=== PATIENT | female | born 1990 | race American Indian/Alaskan Native ===

== ENCOUNTER 2017-08-12 | Emergency (ER) | payer SELFPAY ==
--- NOTE | 2017-08-12 12:06 | EDPHYS ---
Physician Documentation [facility] Name: Margaret Lucero Age: 26 yrs Sex: Female : 1990 Arrival Date: 08/12/2017 Time: 10:53 Bed 13 Private MD: ED Physician Chance Quigley HPI: 08/12 12:03 This 26 yrs old Other Female presents to ER via Ambulatory with complaints of Abdominal rn Pain. 12:03 The patient presents with abdominal pain in the epigastric area. Onset: The rn symptoms/episode began/occurred 2 month(s) ago. Associated signs and symptoms: Pertinent negatives: blood in stools, fever, vomiting, vomiting blood. The symptoms are described as achy, burning. Severity of pain: At its worst the pain was mild in the emergency department the pain has improved. The patient has experienced similar episodes in the past. Reports epigastric abd pain for 2 months, got worse today, intermittent, assoc with diarrhea and constipation alternating, has cut out lactose out of diet, a little better, no insurance so hasn't seen GI. Takes ibuprofen frequently for periods and headaches, no black stool or hematemesis. . 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 - Social history:: Smoking status: Patient uses tobacco products, vape. - Family history:: not pertinent. - Hospitalizations: : No recent hospitalization is reported. ROS: 12:03 Constitutional: Negative for fever, chills, and weight loss, Eyes: Negative for injury, rn pain, redness, and discharge, Neck: Negative for injury, pain, and swelling, Cardiovascular: Negative for chest pain, palpitations, and edema, Respiratory: Negative for shortness of breath, cough, wheezing, and pleuritic chest pain, Abdomen/GI: Negative for nausea, vomiting MS/Extremity: Negative for injury and deformity, Skin: Negative for injury, rash, and discoloration, Neuro: Negative for headache, weakness, numbness, tingling, and seizure. Exam: 12:03 Constitutional: This is a well developed, well nourished patient who is awake, alert, rn and in no acute distress. Head/Face: Normocephalic, atraumatic. Eyes: Pupils equal round and reactive to light, extra-ocular motions intact. Lids and lashes normal. Conjunctiva and sclera are non-icteric and not injected. Cornea within normal limits. Periorbital areas with no swelling, redness, or edema. Abdomen/GI: Soft, non-tender, with normal bowel sounds. No distension or tympany. No guarding or rebound. No evidence of tenderness throughout. Back: No spinal tenderness. No costovertebral tenderness. Full range of motion. Skin: Warm, dry with normal turgor. Normal color with no rashes, no lesions, and no evidence of cellulitis. MS/ Extremity: Pulses equal, no cyanosis. Neurovascular intact. Full, normal range of motion. Equal circumference. Neuro: Awake and alert, GCS 15, oriented to person, place, time, and situation. Cranial nerves II-XII grossly intact. Motor strength 5/5 in all extremities. Sensory grossly intact. Cerebellar exam normal. Normal gait. Vital Signs: 11:04 BP 106 / 83; Pulse 68; Resp 18; Temp 97.4; Pulse Ox 97% on R/A; Weight 80.29 kg; Height ph 5 ft. 3 in. (160.02 cm); Pain 8/10; 11:58 BP 108 / 79; Pulse 63; Resp 17; Pulse Ox 99% ; rb1 11:04 Body Mass Index 31.35 (80.29 kg, 160.02 cm) ph MDM: 11:47 Patient medically screened. rn 12:03 Differential diagnosis: Cholelithiasis, gastritis, gastroesophageal reflux disease, rn non-specific abd pain, Peptic Ulcer Disease. Data reviewed: vital signs, nurses notes, and as a result, I will discharge patient. Counseling: I had a detailed discussion with the patient and/or guardian regarding: the historical points, exam findings, and any diagnostic results supporting the discharge/admit diagnosis, the need for outpatient follow up, to return to the emergency department if symptoms worsen or persist or if there are any questions or concerns that arise at home. Special discussion: I discussed with the patient/guardian in detail that at this point there is no indication for admission to the hospital. It is understood, however, that if the symptoms persist or worsen the patient needs to return immediately for re-evaluation. Based on the history and exam findings, there is no indication for further emergent testing or inpatient evaluation. I discussed with the patient/guardian the need to see the solid waste facility supervisor for further evaluation of the symptoms. ED course: Pt with normal vitals, non-tender abd exam, story sounds like either GERD/gastritis/IBS/IBD, recommended OTC antacid medication and GI f/u, return precautions given and understood. . Administered Medications: No medications were administered Disposition: 08/12/17 12:06 Discharged to Home as Medical Screen. Impression: Gastritis, unspecified, without bleeding. - Condition is Stable. - Discharge Instructions: Gastritis, Adult. - Medication Reconciliation Form, Thank You Letter, Antibiotic Education, Prescription Opioid Use form. - Follow up: Konrad Long MD; When: As needed; Reason: Recheck today's complaints, Re-evaluation by your physician. - Problem is chronic. - Symptoms have improved. Signatures: Maranda Mac RN RN Chance Quigley MD MD rn Hall, Patricia, RN RN Karey Lanier RN RN rb1 Corrections: (The following items were deleted from the chart) 12:09 11:05 PMHx: None; rb1
--- NOTE | 2017-08-12 12:06 | ER ---
Nurse's Notes [facility] Name: Margaret Lucero Age: 26 yrs Sex: Female : 1990 Arrival Date: 08/12/2017 Time: 10:53 Bed 13 Private MD: Diagnosis: Gastritis, unspecified, without bleeding Presentation: 08/12 10:59 Presenting complaint: Patient states: " I have been having burning pain in my stomach ph and diarrhea. This has been going on for a few months but it's worse this time. It's like I'll have diarrhea and then suddenly I'm constipated, then I'll have diarrhea again." Pt reports burning pain in across middle of stomach, diarrhea, nausea and constipation, denies vomiting or fever. Transition of care: patient was not received from another setting of care. Onset of symptoms was August 12, 2017. Initial Sepsis Screen: Does the patient meet any 2 criteria? No. Patient's initial sepsis screen is negative. Does the patient have a suspected source of infection? No. Patient's initial sepsis screen is negative. Care prior to arrival: None. 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 - Social history:: Smoking status: Patient uses tobacco products, vape. - Family history:: not pertinent. - Hospitalizations: : No recent hospitalization is reported. Screenin:45 Abuse screen: Denies threats or abuse. Nutritional screening: No deficits noted. rb1 Tuberculosis screening: No symptoms or risk factors identified. Fall Risk None identified. Assessment: 11:47 General: Appears in no apparent distress. comfortable, Behavior is calm, cooperative. rb1 Pain: Complains of pain in epigastric area Pain currently is 8 out of 10 on a pain scale. Neuro: Level of Consciousness is awake, alert, obeys commands, Oriented to person, place, time, situation. Cardiovascular: Capillary refill < 3 seconds is brisk in bilateral fingers. Respiratory: Airway is patent Respiratory effort is even, unlabored, Respiratory pattern is regular, symmetrical. GI: Bowel sounds present X 4 quads. Abd is soft Abdomen is tender to palpation in epigastric area Reports diarrhea, nausea, since this morning. : No signs and/or symptoms were reported regarding the genitourinary system. Derm: Skin is pink, warm \\T\\ dry. Vital Signs: 11:04 BP 106 / 83; Pulse 68; Resp 18; Temp 97.4; Pulse Ox 97% on R/A; Weight 80.29 kg; Height ph 5 ft. 3 in. (160.02 cm); Pain 8/10; 11:58 BP 108 / 79; Pulse 63; Resp 17; Pulse Ox 99% ; rb1 11:04 Body Mass Index 31.35 (80.29 kg, 160.02 cm) ph ED Course: 10:53 Patient arrived in ED. as 11:02 Triage completed. ph 11:05 Arm band placed on. ph 11:45 Patient has correct armband on for positive identification. Bed in low position. Call rb1 light in reach. Side rails up X 1. Pulse ox on. NIBP on. 11:47 Chance Quigley MD is Attending Physician. rn 12:00 Karey Lanier, MICHAELA is Primary Nurse. rb1 12:06 Konrad Long MD is Referral Physician. rn 12:13 No provider procedures requiring assistance completed. Patient did not have IV access rb1 during this emergency room visit. Administered Medications: No medications were administered Outcome: 12:06 Discharge ordered by . rn 12:13 Patient left the ED. iw 12:13 Discharged to home ambulatory. rb1 12:13 Condition: stable 12:13 Discharge instructions given to pt. left without signing paperwork Signatures: Elisabeth Tomlin Irene, RN RN Chance Quigley MD MD rn Hall, Patricia, RN RN Karey Lanier, MICHAELA RN rb1 Corrections: (The following items were deleted from the chart) 12:09 11:05 PMHx: None; ph rb1
== END 2017-08-12 12:13 | disposition home or self-care (01) ==
CPT/HCPCS: 99283

== ENCOUNTER 2018-08-17 18:44 | Emergency (ER) | payer OTHER ==
[2018-08-17] MEDS ORDERED: NA CHLORIDE 0.9% 1,000 ML ONE ×2 (19:41→21:23)
[2018-08-17 19:48] LABS: Absolute Lymphocytes (CBC) 2.3 K/uL (0.7-4.9); Absolute Neutrophil 9.4 K/uL (1.8-8.0); Basophils % 0.6 % (0-1.3); Eosinophils % 0.7 % (0-4.4); Hematocrit 32.2 % (36.0-45.0); Lymphocytes % 18.1 % (15.3-44.8); MPV 9.1 fL (7.6-11.3); Monocytes % 7.5 % (3.3-12.3)
[2018-08-17 20:06] LABS: ALT/SGPT 15 U/L (12-78); AST/SGOT 11 U/L (15-37); Albumin 2.8 g/dL (3.4-5.0); Alkaline Phosphatase 81 U/L (45-117); BUN Blood Urea Nitrogen 8 mg/dL (7-18); Bicarbonate 23 mmol/L (21-32); Bilirubin Direct < 0.1 mg/dL (0-0.2); Bilirubin Total 0.3 mg/dL (0.2-1.0); Glucose Level 74 mg/dL (74-106); Potassium 3.9 mmol/L (3.5-5.1); Protein, Total 7.4 g/dL (6.4-8.2); Sodium Level 139 mmol/L (136-145)
[2018-08-17 20:39] LABS: Urine Blood NEGATIVE (NEG); Urine Glucose NEGATIVE (NEG); Urine Protein TRACE (NEG); Urine Specific Gravity 1.025 (1.005-1.030)
--- NOTE | 2018-08-17 22:02 | EDPHYS ---
Physician Documentation [facility] Name: Margaret Lucero Age: 27 yrs Sex: Female : 1990 Arrival Date: 08/17/2018 Time: 18:48 Bed 27 Private MD: ED Physician Carlos A Day HPI: 08/17 20:08 This 27 yrs old Other Female presents to ER via Ambulatory with complaints of snw Dizziness, 22 wks . 20:08 The patient presents with generalized weakness, lightheadedness. Onset: The snw symptoms/episode began/occurred gradually. Context: occurred at home, occurred while the patient was walking. Modifying factors: the symptoms are aggravated by recent influenza, well for a short time and then got bronchitic illness. 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 No vaginal bleeding. Associated signs and symptoms: Pertinent positives: headache, tingling. Severity of symptoms: At their worst the symptoms were moderate. Patient's baseline: Neuro: alert and fully oriented, Motor: no deficits, Ambulation: walks without assistance, Speech: normal. It is unknown whether or not the patient has had similar symptoms in the past. seeing [facility] MD/OB. 22 wk primip. 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 - Social history:: Smoking status: Patient/guardian denies using tobacco, Patient/guardian denies using alcohol, street drugs, IV drugs. - Ebola Screening: : No symptoms or risks identified at this time. ROS: 20:07 Constitutional: Negative for fever, chills, and weight loss, Eyes: Negative for injury, snw pain, redness, and discharge, ENT: Negative for injury, pain, and discharge, Neck: Negative for injury, pain, and swelling, Cardiovascular: Negative for chest pain, palpitations, and edema, Respiratory: Negative for shortness of breath, cough, wheezing, and pleuritic chest pain, Abdomen/GI: Negative for abdominal pain, nausea, vomiting, diarrhea, and constipation, Back: Negative for injury and pain, : Negative for injury, bleeding, discharge, and swelling, MS/Extremity: Negative for injury and deformity, Skin: Negative for injury, rash, and discoloration. 20:07 Psych: Negative for depression, anxiety, suicide ideation, homicidal ideation, and hallucinations, Allergy/Immunology: Negative for hives, rash, and allergies. 20:07 Neuro: Positive for dizziness, headache. Exam: 20:07 Constitutional: This is a well developed, well nourished patient who is awake, alert, snw and in no acute distress. Head/Face: Normocephalic, atraumatic. Eyes: Pupils equal round and reactive to light, extra-ocular motions intact. Lids and lashes normal. Conjunctiva and sclera are non-icteric and not injected. Cornea within normal limits. Periorbital areas with no swelling, redness, or edema. ENT: Nares patent. No nasal discharge, no septal abnormalities noted. Tympanic membranes are normal and external auditory canals are clear. Oropharynx with no redness, swelling, or masses, exudates, or evidence of obstruction, uvula midline. Mucous membranes moist. Neck: Trachea midline, no thyromegaly or masses palpated, and no cervical lymphadenopathy. Supple, full range of motion without nuchal rigidity, or vertebral point tenderness. No Meningismus. Chest/axilla: Normal chest wall appearance and motion. Nontender with no deformity. No lesions are appreciated. Cardiovascular: Regular rate and rhythm with a normal S1 and S2. No gallops, murmurs, or rubs. Normal PMI, no JVD. No pulse deficits. Respiratory: Lungs have equal breath sounds bilaterally, clear to auscultation and percussion. No rales, rhonchi or wheezes noted. No increased work of breathing, no retractions or nasal flaring. Abdomen/GI: Soft, non-tender, with normal bowel sounds. No distension or tympany. No guarding or rebound. No evidence of tenderness throughout. +Gravid Back: No spinal tenderness. No costovertebral tenderness. Full range of motion. Skin: Warm, dry with normal turgor. Normal color with no rashes, no lesions, and no evidence of cellulitis. MS/ Extremity: Pulses equal, no cyanosis. Neurovascular intact. Full, normal range of motion. Neuro: Awake and alert, GCS 15, oriented to person, place, time, and situation. Cranial nerves II-XII grossly intact. Motor strength 5/5 in all extremities. Sensory grossly intact. Cerebellar exam normal. Normal gait. Psych: Awake, alert, with orientation to person, place and time. Behavior, mood, and affect are within normal limits. Vital Signs: 19:26 BP 101 / 74; Pulse 74; Resp 18; Temp 97.6(O); Pulse Ox 100% on R/A; Weight 83.46 kg; mg2 Height 5 ft. 4 in. (162.56 cm); Pain 6/10; 21:23 BP 110 / 64; Pulse 85; Resp 18; Pulse Ox 100% on R/A; Pain 0/10; mg2 19:26 Body Mass Index 31.58 (83.46 kg, 162.56 cm) mg2 MDM: 19:30 Patient medically screened. snw 22:02 Data reviewed: vital signs, nurses notes. Data interpreted: Pulse oximetry: on room air snw is 100 %. Interpretation: normal. Counseling: I had a detailed discussion with the patient and/or guardian regarding: the historical points, exam findings, and any diagnostic results supporting the discharge/admit diagnosis, lab results, the need for outpatient follow up, to return to the emergency department if symptoms worsen or persist or if there are any questions or concerns that arise at home. Special discussion: Based on the history and exam findings, there is no indication for further emergent testing or inpatient evaluation. I discussed with the patient/guardian the need to see the OB Gyne specialist for further evaluation of the symptoms. I discussed with the patient/guardian the need to see the primary care provider for further evaluation of the symptoms. 22:03 Response to treatment: the patient's symptoms have markedly improved after treatment, snw patient is well hydrated. 08/17 19: Order name: Basic Metabolic Panel; Complete Time: 20:06 snw 08/17 18: Order name: CBC with Diff; Complete Time: 19:55 snw 08/17 18: Order name: Hepatic Function; Complete Time: 20:06 snw 08/17 19:30 Order name: Urine Dipstick--Ancillary (enter results) ar5 08/17 19: Order name: Urine --Ancillary (enter results) ar5 08/17 19:31 Order name: Urine Dipstick-Ancillary; Complete Time: 20:46 EDMS 08/17 19:25 Order name: IV Saline Lock; Complete Time: 19:32 snw 08/17 19:25 Order name: Labs collected and sent; Complete Time: 19:32 snw 08/17 19:31 Order name: Urine --Ancillary; Complete Time: 20:46 EDMS 08/17 20:07 Order name: FHT's; Complete Time: 21:22 snw Administered Medications: 19:45 Drug: NS 0.9% 1000 ml Route: IV; Rate: 1 bolus; Site: right antecubital; mg2 20:59 Follow up: Response: No adverse reaction; IV Status: Completed infusion mg2 21:22 Drug: NS 0.9% 1000 ml Route: IV; Rate: 1 bolus; Site: right antecubital; mg2 22:04 Follow up: Response: No adverse reaction; IV Status: Completed infusion mg2 Disposition: 08/18 21:15 Co-signature as Attending Physician, Carlos A Day MD I agree with the assessment and wa plan of care. Disposition: 08/17/18 22:01 Discharged to Home. Impression: Dehydration. - Condition is Stable. - Discharge Instructions: Dehydration, Adult, Rehydration, Adult, Eating Plan for Women. - Prescriptions for Vitamin 27- 0.8 mg Oral Tablet - take 1 tablet by ORAL route once daily; 60 tablet. - Work release form, Medication Reconciliation Form, Thank You Letter, Antibiotic Education, Prescription Opioid Use form. - Follow up: Private Physician; When: 2 - 3 days; Reason: Recheck today's complaints, Continuance of care, Re-evaluation by your physician. Follow up: Emergency Department; When: As needed; Reason: Worsening of condition. Signatures: Dispatcher [employer] [facility] Lesley Byers, AIR OPERATIONS MANAGER-C AIR OPERATIONS MANAGER-Csnw Carlos A Day MD MD wa Gardose, Michele, RN RN mg2 Corrections: (The following items were deleted from the chart) 08/17 22:20 22:01 08/17/2018 22:01 Discharged to Home. Impression: Dehydration. Condition is mg2 Stable. Discharge Instructions: Dehydration, Adult, Rehydration, Adult, Eating Plan for Women. Prescriptions for Vitamin 27-0.8 mg Oral Tablet - take 1 tablet by ORAL route once daily; 60 tablet. and Forms are Work release form, Medication Reconciliation Form, Thank You Letter, Antibiotic Education, Prescription Opioid Use. Follow up: Private Physician; When: 2 - 3 days; Reason: Recheck today's complaints, Continuance of care, Re-evaluation by your physician. Follow up: Emergency Department; When: As needed; Reason: Worsening of condition. snsandrita
--- NOTE | 2018-08-17 22:02 | ER ---
Nurse's Notes [facility] Name: Margaret Lucero Age: 27 yrs Sex: Female : 1990 Arrival Date: 08/17/2018 Time: 18:48 Bed 27 Private MD: Diagnosis: Dehydration Presentation: 08/17 19:18 Presenting complaint: Patient states: im 22 weeks , have dizziness, tingling mg2 sensation on my both hands, headache, nausea and abdominal cramping on and off for 1 1/2 weeks now. i had flu 2 weeks ago. Transition of care: patient was not received from another setting of care. Onset of symptoms was July 2018. Risk Assessment: Do you want to hurt yourself or someone else? Patient reports no desire to harm self or others. Initial Sepsis Screen: Does the patient meet any 2 criteria? No. Patient's initial sepsis screen is negative. Does the patient have a suspected source of infection? No. Patient's initial sepsis screen is negative. Care prior to arrival: None. 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 - Social history:: Smoking status: Patient/guardian denies using tobacco, Patient/guardian denies using alcohol, street drugs, IV drugs. - Ebola Screening: : No symptoms or risks identified at this time. Screenin:22 Abuse screen: Denies threats or abuse. Denies injuries from another. Nutritional mg2 screening: No deficits noted. Tuberculosis screening: No symptoms or risk factors identified. 19:27 Fall Risk None identified. mg2 Assessment: 19:24 General: Appears in no apparent distress. comfortable, Behavior is calm, cooperative. mg2 Pain: Complains of pain in abdomen Pain does not radiate. Pain currently is 6 out of 10 on a pain scale. Quality of pain is described as crampy, Pain began gradually, Is intermittent. Neuro: Level of Consciousness is awake, alert, obeys commands, Oriented to person, place, time, situation. Cardiovascular: Capillary refill < 3 seconds. Respiratory: Airway is patent Respiratory effort is even, unlabored, Respiratory pattern is regular, symmetrical. GI: Abdomen is round non-distended, Reports nausea. : Urine is clear, Reports pain in bilateral in suprapubic area. EENT: No signs and/or symptoms were reported regarding the EENT system. Derm: Skin is intact, is healthy with good turgor, Skin is pink, warm \T\ dry. normal. Musculoskeletal: Circulation, motion, and sensation intact. Capillary refill < 3 seconds. 22:19 Reassessment: Patient appears in no apparent distress at this time. Patient denies pain mg2 at this time. Patient states feeling better. Patient states symptoms have improved. Vital Signs: 19:26 BP 101 / 74; Pulse 74; Resp 18; Temp 97.6(O); Pulse Ox 100% on R/A; Weight 83.46 kg; mg2 Height 5 ft. 4 in. (162.56 cm); Pain 6/10; 21:23 BP 110 / 64; Pulse 85; Resp 18; Pulse Ox 100% on R/A; Pain 0/10; mg2 19:26 Body Mass Index 31.58 (83.46 kg, 162.56 cm) mg2 Vitals: 21:23 Heart Tones 180 FHT. mg2 ED Course: 18:48 Patient arrived in ED. mr 19:05 Chad Baptiste, RN is Primary Nurse. mg2 19:06 Lesley Byers FNP-C is [facility]. snw 19:06 Carlos A Day MD is Attending Physician. snw 19:20 Triage completed. mg2 19:22 Arm band placed on. mg2 19:26 Patient has correct armband on for positive identification. Placed in gown. Bed in low mg2 position. Call light in reach. Side rails up X2. Pulse ox on. NIBP on. 19:26 No provider procedures requiring assistance completed. mg2 19:26 Urine collected: clean catch specimen, clear, gloria colored, ran by Chad Baptiste RN. jp3 19:30 Initial lab(s) drawn, by pr, sent to lab. Inserted saline lock: 20 gauge in right jp3 antecubital area, using aseptic technique. Blood collected. 19:40 Warm blanket given. Pillow given. jp3 19:44 Basic Metabolic Panel Sent. jp3 19:44 CBC with Diff Sent. jp3 19:44 Hepatic Function Sent. jp3 22:18 IV discontinued, intact, bleeding controlled, No redness/swelling at site. Pressure mg2 dressing applied. Administered Medications: 19:45 Drug: NS 0.9% 1000 ml Route: IV; Rate: 1 bolus; Site: right antecubital; mg2 20:59 Follow up: Response: No adverse reaction; IV Status: Completed infusion mg2 21:22 Drug: NS 0.9% 1000 ml Route: IV; Rate: 1 bolus; Site: right antecubital; mg2 22:04 Follow up: Response: No adverse reaction; IV Status: Completed infusion mg2 Outcome: 22:01 Discharge ordered by . snw 22:19 Discharged to home ambulatory, with family. mg2 22:19 Condition: stable 22:19 Discharge instructions given to patient, family, Instructed on discharge instructions, follow up and referral plans. medication usage, Demonstrated understanding of instructions, follow-up care, medications, Prescriptions given X 1. 22:20 Patient left the ED. mg2 Signatures: Lesley Byers, DRIER OPERATOR HELPER-C DRIER OPERATOR HELPER-Csnw Randee Nieto Michele, RN RN mg2 Jc Jones jp3 Corrections: (The following items were deleted from the chart) 19:20 19:18 Presenting complaint: Patient states: i have dizziness, tingling sensation on my mg2 both hands, headache and abdominal cramping on and off for 1 1/2 weeks now. i had flu 2 weeks ago. mg2
== END 2018-08-17 22:20 | disposition home or self-care (01) ==
LOC: ER 18:44
DX: O26.892 Other specified pregnancy related conditions, second trimester (principal); E86.0 Dehydration; Z3A.22 22 weeks gestation of pregnancy; F41.9 Anxiety disorder, unspecified; F31.9 Bipolar disorder, unspecified; F32.9 Major depressive disorder, single episode, unspecified
CPT/HCPCS: 36415; 80048; 80076; 81003; 81025; 85025; 96360; 96361; 99284; J7030

== ENCOUNTER 2018-09-12 09:41 | Emergency (ER) | payer OTHER ==
--- NOTE | 2018-09-12 11:27 | EDPHYS ---
Physician Documentation [facility] Name: Margaret Lucero Age: 27 yrs Sex: Female : 1990 Arrival Date: 09/12/2018 Time: 09:43 Bed 5 Private MD: ED Physician Orlando Collins HPI: 09/12 10:26 This 27 yrs old Other Female presents to ER via Ambulatory with complaints of Anxiety. jmm 10:26 Onset: The symptoms/episode began/occurred acutely, this morning. Associated signs and jmm symptoms: Pertinent negatives:. 11:47 Past psychiatric history: Prior diagnosis: bipolar disorder, depression, Psychiatric jmm medications include: Zoloft. This is s 27 year old female with a history of anxiety, bipolar disorder, depression that presents to the ED with complaints of a panic attack which occurred after a dream involving her mom. Patient states that she was prescribed sertraline by her OB 3 weeks ago but stopped taking the medication 2 days in because she didn't like the way it made her feel. Patient states she is having difficulty controlling her panic attacks. Patient denies HI or SI. Patient states she is happy about her . The patient states she has psychiatric services at her OB but has yet to use them. Patient states during her panic attack she developed chest tightness and tingling to all her extremities but that is now resolved. . 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 - Social history:: Smoking status: Patient/guardian denies using tobacco. - Ebola Screening: : Patient negative for fever greater than or equal to 101.5 degrees Fahrenheit, and additional compatible Ebola Virus Disease symptoms Patient denies exposure to infectious person Patient denies travel to an Ebola-affected area in the 21 days before illness onset No symptoms or risks identified at this time. ROS: 11:47 Constitutional: Negative for fever, chills, and weight loss, Cardiovascular: Negative jmm for chest pain, palpitations, and edema, Respiratory: Negative for shortness of breath, cough, wheezing, and pleuritic chest pain, Abdomen/GI: Negative for abdominal pain, nausea, vomiting, diarrhea, and constipation. 11:47 : Negative for vaginal bleeding. 11:47 All other systems are negative. Exam: 11:47 Constitutional: This is a well developed, well nourished patient who is awake, alert, jmm and in no acute distress. Head/Face: atraumatic. Eyes: EOMI, no conjunctival erythema appreciated ENT: Moist Mucus Membranes Neck: Trachea midline, Supple Chest/axilla: Normal chest wall appearance and motion. Cardiovascular: Regular rate and rhythm. No edema appreciated Respiratory: Normal respirations, no respiratory distress appreciated 11:47 Back: Normal ROM Skin: General appearance color normal MS/ Extremity: Moves all extremities, no obvious deformities appreciated, no edema noted to the lower extremities Neuro: Awake and alert, normal gait Psych: Behavior is normal, Mood is normal, Patient is cooperative and pleasant 11:47 Abdomen/GI: Inspection: gravid appearance, Bowel sounds: normal, Palpation: abdomen is soft and non-tender, in all quadrants. Vital Signs: 09:50 Pulse 92; Resp 18; Pulse Ox 100% ; sg 09:51 BP 124 / 93; Resp 17; sg 11:13 BP 100 / 69; Pulse 94; Resp 19; Pulse Ox 99% ; sv 11:40 BP 99 / 73; Pulse 95; Resp 18; Temp 97.5; Pulse Ox 100% on R/A; ph MDM: 10:26 Patient medically screened. [facility] 11:26 Data reviewed: vital signs, nurses notes. Counseling: I had a detailed discussion with [facility] the patient and/or guardian regarding: the historical points, exam findings, and any diagnostic results supporting the discharge/admit diagnosis, the need for outpatient follow up, to return to the emergency department if symptoms worsen or persist or if there are any questions or concerns that arise at home. 11:26 ED course: Patient states feeling much better during the stay in the ED. Patient is [facility] encouraged to follow up with psychiatry for further evaluation. The patient denies SI or HI. Patient is advised to return to the ED if symptoms worsens or if she has any other concerning symptoms. Patient understood and agrees with the plan of care. . 09/12 11:13 Order name: EKG; Complete Time: 11:13 sv 09/12 10:27 Order name: Heart Tones; Complete Time: 10:40 jmm 09/12 10:27 Order name: EKG - Nurse/Tech; Complete Time: 10:34 [facility] Administered Medications: No medications were administered Disposition: 16:31 Co-signature as Attending Physician, Orlando Collins MD. Disposition: 09/12/18 11:26 Discharged to Home. Impression: Anxiety disorder, unspecified. - Condition is Stable. - Discharge Instructions: Panic Attacks. - Prescriptions for Benadryl 25 mg Oral Capsule - take 1 capsule by ORAL route every 6 hours As needed; 30 tablet. - Medication Reconciliation Form, Thank You Letter, Antibiotic Education, Prescription Opioid Use, Work release form form. - Follow up: Private Physician; When: 1 - 2 days; Reason: Recheck today's complaints, Continuance of care, Re-evaluation by your physician. Signatures: Ozzy García RN RN sg Mickail, Joel, PA PA jmm Hall, Patricia, RN RN Orlando Collins MD MD Corrections: (The following items were deleted from the chart) 11:42 11:26 09/12/2018 11:26 Discharged to Home. Impression: Anxiety disorder, unspecified. ph Condition is Stable. Forms are Medication Reconciliation Form, Thank You Letter, Antibiotic Education, Prescription Opioid Use. Follow up: Private Physician; When: 1 - 2 days; Reason: Recheck today's complaints, Continuance of care, Re-evaluation by your physician. mindy
--- NOTE | 2018-09-12 11:27 | ER ---
Nurse's Notes [facility] Name: Margaret Lucero Age: 27 yrs Sex: Female : 1990 Arrival Date: 09/12/2018 Time: 09:43 Bed 5 Private MD: Diagnosis: Anxiety disorder, unspecified Presentation: 09/12 09:50 Presenting complaint: Patient states: Anxiety attach that was triggered by a dream, sg felt anxious with chest tightness and shortness of breath, My provider is aware and given me antidepressants and Im and then had a loss of sensation in my arms and legs, havent had an attack like this is years. 09:52 Transition of care: patient was not received from another setting of care. Onset of sg symptoms was September 12, 2018. Risk Assessment: Do you want to hurt yourself or someone else? Patient reports no desire to harm self or others. Initial Sepsis Screen: Does the patient meet any 2 criteria? No. Patient's initial sepsis screen is negative. Does the patient have a suspected source of infection? No. Patient's initial sepsis screen is negative. Care prior to arrival: None. 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 - Social history:: Smoking status: Patient/guardian denies using tobacco. - Ebola Screening: : Patient negative for fever greater than or equal to 101.5 degrees Fahrenheit, and additional compatible Ebola Virus Disease symptoms Patient denies exposure to infectious person Patient denies travel to an Ebola-affected area in the 21 days before illness onset No symptoms or risks identified at this time. Screenin:40 Abuse screen: Denies threats or abuse. Denies injuries from another. Nutritional ph screening: No deficits noted. Tuberculosis screening: No symptoms or risk factors identified. Fall Risk None identified. Assessment: 10:30 General: Appears in no apparent distress. comfortable, well groomed, Behavior is calm, ph cooperative, appropriate for age. Pain: Complains of pain in chest. Neuro: Level of Consciousness is awake, alert, obeys commands, Oriented to person, place, time, situation. Cardiovascular: Capillary refill < 3 seconds in bilateral fingers Patient's skin is warm and dry. Respiratory: Airway is patent Respiratory effort is even, unlabored, Respiratory pattern is regular, symmetrical. GI: Patient currently denies abdominal pain, nausea, vomiting. Derm: Skin is intact, is healthy with good turgor, Skin is pink, warm \T\ dry. Musculoskeletal: Circulation, motion, and sensation intact. Range of motion: intact in all extremities. 11:39 Reassessment: Patient appears in no apparent distress at this time. Patient and/or ph family updated on plan of care and expected duration. Pain level reassessed. Patient is alert, oriented x 3, equal unlabored respirations, skin warm/dry/pink. Pt d/c home w/ SO w/prescription for Benadryl. Vital Signs: 09:50 Pulse 92; Resp 18; Pulse Ox 100% ; sg 09:51 BP 124 / 93; Resp 17; sg 11:13 BP 100 / 69; Pulse 94; Resp 19; Pulse Ox 99% ; sv 11:40 BP 99 / 73; Pulse 95; Resp 18; Temp 97.5; Pulse Ox 100% on R/A; ph Vitals: 10:40 Heart Tones: 148. 3 ED Course: 09:43 Patient arrived in ED. tw3 09:47 Arm band placed on. sg 09:53 Triage completed. 10:01 Fernando Greenwood PA is PHCP. [facility] 10:01 Orlando Collins MD is Attending Physician. [facility] 10:13 EKG done, by ED staff, reviewed by Fernando ALDRIDGE. 3 11:00 Patient has correct armband on for positive identification. Bed in low position. Call ph light in reach. lard bleacher on. Pulse ox on. NIBP on. Warm blanket given. 11:12 Anabel Browning, RN is Primary Nurse. ph 11:41 No provider procedures requiring assistance completed. Patient did not have IV access ph during this emergency room visit. Administered Medications: No medications were administered Outcome: 11:26 Discharge ordered by . [facility] 11:41 Discharged to home ambulatory, with significant other. ph 11:41 Condition: good 11:41 Discharge instructions given to patient, Instructed on discharge instructions, follow up and referral plans. medication usage, Demonstrated understanding of instructions, follow-up care, medications, Prescriptions given X 1. 11:42 Patient left the ED. ph Signatures: Mayi Mijares, RN Ozzy Enamorado RN RN sg Mickail, Joel, PA PA jmm Hall, Patricia, RN RN Jj, Alejandra 3 Leora Lopez 3
--- NOTE | 2018-09-13 06:20 | EKG ---
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
== END 2018-09-12 11:42 | disposition home or self-care (01) ==
LOC: ER 09:41
DX: O99.342 Other mental disorders complicating pregnancy, second trimester (principal); Z3A.00 Weeks of gestation of pregnancy not specified
CPT/HCPCS: 93005; 99284

== ENCOUNTER 2020-07-20 04:53 | Emergency (ER) | payer OTHER ==
--- OUTSIDE RECORDS SUMMARY | 2020-07-20 04:55 | XMS REPORT | Continuity of Care Document ---
:1990 Author Organization [facility] t Address [address] [place] [address] Care Team Providers Name Role Phone Tonny Coyle DO Attending Clinician Apurva Oglesby MD Attending Clinician Problems This patient has no known problems. Allergies, Adverse Reactions, Alerts This patient has no known allergies or adverse reactions. Medications This patient has no known medications. Procedures This patient has no known procedures. Encounters Start End Encounter Admission Attending Care Care Encounter Source Date/Time Date/Time Type Type Clinicians Facility Department ID 2020-07-18 2020-07-18 Patient Leonides [facility] [id number] 00:00:00 00:00:00 Outreach Dionte ALCANTAR [id number] Tonny [facility] [id number] SILVANA [id number] 2020-02-22 2020-02-22 Office Mendel IAALONSO [id number] 10:00:40 11:25:17 Visit Kiesha Wall [id number] Abdelrahman [id number] Shamar [id number] [address] Results This patient has no known results.
[2020-07-20] MEDS ORDERED: ASPIRIN 81 MG CHEWABLE TABLET ONE (06:08)
[2020-07-20] MEDS ORDERED: ALPRAZOLAM 1 MG TABLET ONE (06:09)
[2020-07-20] MEDS ORDERED: NA CHLORIDE 0.9% 1,000 ML ONE (06:09)
[2020-07-20 06:11] LABS: Absolute Lymphocytes (CBC) 3.4 K/uL (0.7-4.9); Basophils % 0.4 % (0-1.3); Hematocrit 37.5 % (36.0-45.0); MPV 9.8 fL (7.6-11.3); RBC Red Blood Cell Count 4.25 M/uL (3.86-4.86)
[2020-07-20 06:13] LABS: Protime INR 0.99
[2020-07-20 06:36] LABS: ALT/SGPT 55 U/L (12-78); AST/SGOT 44 U/L (15-37); Albumin 3.3 g/dL (3.4-5.0); Alkaline Phosphatase 85 U/L (45-117); BUN Blood Urea Nitrogen 12 mg/dL (7-18); Bicarbonate 23 mmol/L (21-32); Bilirubin Direct < 0.1 mg/dL (0-0.2); Bilirubin Total 0.2 mg/dL (0.2-1.0); Glucose Level 90 mg/dL (74-106); NT PRO-BNP 7 pg/mL (<125); Potassium 3.9 mmol/L (3.5-5.1); Protein, Total 7.9 g/dL (6.4-8.2); Sodium Level 139 mmol/L (136-145); Troponin (Emerg Dept Use Only) < 0.02 ng/mL (0.0-0.045)
--- NOTE | 2020-07-20 08:07 | RAD REPORT ---
EXAM DESCRIPTION: Mikaela Single View07/20/2020 5:40 am CLINICAL HISTORY: Chest pain COMPARISON: none FINDINGS: Prominent right medial suprahilar opacity. Remainder the lungs appear clear. Heart is normal size IMPRESSION: Prominent right medial suprahilar opacity may represent confluence of normal vascular st ructures, lymphadenopathy or less likely lung mass. It is recommended that the patient have a PA and lateral chest series for further evaluation
[2020-07-20 09:18] LABS: Urine Blood NEGATIVE (NEG); Urine Glucose NEGATIVE (NEG); Urine Protein NEGATIVE (NEG); Urine Specific Gravity 1.015 (1.005-1.030); Urine pH 5.5 (5.0-7.0)
--- NOTE | 2020-07-20 10:04 | RAD REPORT ---
EXAM DESCRIPTION: CT - Chest For Pe Angio - 07/20/2020 9:33 am CLINICAL HISTORY: Chest pain COMPARISON: July 18, 2020 chest x-ray TECHNIQUE: Dynamically enhanced axial 3 mm thick images of the chest were obtained during administra tion of <100> mL Isovue 370 IV contrast. Coronal and oblique reconstruction images were generated and reviewed. Exam utilizes a protocol for optimal evaluation of pulmonary arterial tree. Maximum intensity projections 3D imaging was utilized All CT scans are performed using dose optimization technique as appropriate and may include automated exposure control or mA/KV adjustment according to patient size. FINDINGS: A pulmonary embolus is not seen. A thoracic aortic aneurysm is not noted. A pleural effusion is not seen. A pericardial effusion is not seen. Previously described prominent medial right suprahilar opacity represents confluence of normal vessel s. Lungs are clear IMPRESSION: Negative for a pulmonary embolism.
--- NOTE | 2020-07-20 10:24 | ER ---
Nurse's Notes [facility] Name: Margaret Lucero Age: 29 yrs Sex: Female : 1990 Arrival Date: 07/20/2020 Time: 05:05 Bed 18 Private MD: Diagnosis: Chest pain, unspecified;Jaw pain;Anxiety disorder, unspecified Presentation: 07/20 05:24 Chief complaint: Patient states: Reports she started having pain in her left jaw, ea tingling in left arm and chest pain around 0000 while watching TV. Pt states " I am not sure if it's my anxiety or something else". Coronavirus screen: At this time, the client does not indicate any symptoms associated with coronavirus-19. Ebola Screen: No symptoms or risks identified at this time. Initial Sepsis Screen: Does the patient meet any 2 criteria? No. Patient's initial sepsis screen is negative. Does the patient have a suspected source of infection? No. Patient's initial sepsis screen is negative. Risk Assessment: Do you want to hurt yourself or someone else? Patient reports no desire to harm self or others. Onset of symptoms was July 20, 2020. 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 - Social history:: Smoking status: Patient denies any tobacco usage or history of. - Family history:: not pertinent. Screenin:26 Abuse screen: Denies threats or abuse. Nutritional screening: No deficits noted. ea Tuberculosis screening: No symptoms or risk factors identified. Fall Risk None identified. Assessment: 05:29 General: Appears in no apparent distress. Behavior is anxious. Pain: Complains of pain ea in left mandible and chest. Neuro: Level of Consciousness is awake, alert, obeys commands, Oriented to person, place, time, situation. Cardiovascular: Patient's skin is warm and dry. Respiratory: Airway is patent Respiratory effort is even, unlabored, Respiratory pattern is regular, symmetrical. Derm: Skin is pink, warm \\T\\ dry. 07:07 General: Appears in no apparent distress. comfortable, Behavior is calm, cooperative. rb3 Neuro: Level of Consciousness is awake, alert, obeys commands, Oriented to person, place, time, situation. Cardiovascular: Patient's skin is warm and dry. Respiratory: Airway is patent Respiratory effort is even, unlabored, Respiratory pattern is regular, symmetrical. 08:00 Reassessment: Patient appears in no apparent distress at this time. No changes from rb3 previously documented assessment. 09:00 Reassessment: Patient appears in no apparent distress at this time. Patient and/or rb3 family updated on plan of care and expected duration. Pain level reassessed. Patient is alert, oriented x 3, equal unlabored respirations, skin warm/dry/pink. 10:00 Reassessment: Patient appears in no apparent distress at this time. Patient and/or rb3 family updated on plan of care and expected duration. Pain level reassessed. Patient is alert, oriented x 3, equal unlabored respirations, skin warm/dry/pink. 10:45 Reassessment: Patient appears in no apparent distress at this time. No changes from rb3 previously documented assessment. Vital Signs: 05:24 BP 134 / 90; Pulse 72; Resp 18; Temp 98; Pulse Ox 99% ; Weight 111.58 kg; Height 5 ft. ea 6 in. (167.64 cm); 07:07 BP 117 / 60; Pulse 81; Resp 17; Pulse Ox 96% ; rb3 08:00 BP 122 / 71; Pulse 84; Resp 19; Pulse Ox 98% ; rb3 09:00 BP 124 / 84; Pulse 77; Resp 17; Pulse Ox 97% ; rb3 10:00 BP 129 / 84; Pulse 79; Resp 20; Pulse Ox 96% ; rb3 10:45 BP 137 / 94; Pulse 76; Resp 19; Pulse Ox 99% ; rb3 05:24 Body Mass Index 39.71 (111.58 kg, 167.64 cm) ea ED Course: 05:05 Patient arrived in ED. bp1 05:23 Gabriela Guaman, MICHAELA is Primary Nurse. ea 05:26 Triage completed. ea 05:26 Patient has correct armband on for positive identification. Bed in low position. ea self pay collector on. Pulse ox on. NIBP on. 05:27 Patient maintains SpO2 saturation greater than 95% on room air. ea 05:28 Justin Villaseñor MD is Attending Physician. kashif 05:28 Arm band placed on right wrist. Patient placed in an exam room, on a stretcher, on ea pulse oximetry. 05:40 XRAY Chest (1 view) In Process Unspecified. EDMS 05:51 Inserted saline lock: 20 gauge in right antecubital area, using aseptic technique. ea Blood collected. 06:36 Attending Physician role handed off by Justin Villaseñor MD kdr 06:36 Nael Rosado MD is Attending Physician. kdr 09:34 CT Chest For PE Angio In Process Unspecified. EDMS 10:23 Benedicto Henry MD is Referral Physician. kdr 10:47 No provider procedures requiring assistance completed. IV discontinued, intact, rb3 bleeding controlled, No redness/swelling at site. Pressure dressing applied. Administered Medications: 06:00 Drug: Aspirin 81 mg Route: PO; rr5 06:22 Follow up: Response: No adverse reaction ea 06:11 Drug: NS 0.9% 1000 ml Route: IV; Rate: 1 bolus; Site: right antecubital; rr5 06:16 Not Given (Patient Refused): XANax (alprazolam) Tablet 1 mg PO once ea Outcome: 10:23 Discharge ordered by . kdr 10:47 Discharged to home ambulatory. rb3 10:47 Condition: stable 10:47 Discharge instructions given to patient, Instructed on discharge instructions, follow up and referral plans. medication usage, Demonstrated understanding of instructions, follow-up care, medications, Prescriptions given X 3. 11:06 Patient left the ED. rb3 Signatures: Dispatcher [employer] EDPR Justin Villaseñor MD MD cha Rittger, Kevin, MD MD kdr Antunez, Elena, RN RN Jamey Kirkland RN RN rr5 Nalini Matias Rebecca, RN RN rb3
--- NOTE | 2020-07-20 10:24 | EDPHYS ---
Physician Documentation [facility] Name: Margaret Lucero Age: 29 yrs Sex: Female : 1990 Arrival Date: 07/20/2020 Time: 05:05 Bed 18 Private MD: ED Physician Nael Rosado HPI: 07/20 05:46 This 29 yrs old Other Female presents to ER via Ambulatory with complaints of Chest kashif Pain, Arm Pain, Anxiety. 05:46 The patient or guardian reports chest pain that is located primarily in the substernal kashif area. The pain radiates to left jaw. Associated signs and symptoms: Pertinent positives: None. The chest pain is described as squeezing. Duration: The patient or guardian reports multiple episodes, that wax and wane. Modifying factors: The symptoms are alleviated by nothing. the symptoms are aggravated by nothing. Severity of pain: At its worst the pain was mild in the emergency department the pain is unchanged. The patient has not experienced similar symptoms in the past. 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 - Social history:: Smoking status: Patient denies any tobacco usage or history of. - Family history:: not pertinent. ROS: 05:46 Constitutional: Negative for fever, chills, and weight loss, Eyes: Negative for injury, kashif pain, redness, and discharge, Neck: Negative for injury, pain, and swelling, Respiratory: Negative for shortness of breath, cough, wheezing, and pleuritic chest pain, Abdomen/GI: Negative for abdominal pain, nausea, vomiting, diarrhea, and constipation, Back: Negative for injury and pain, : Negative for injury, bleeding, discharge, and swelling, MS/Extremity: Negative for injury and deformity, Skin: Negative for injury, rash, and discoloration, Neuro: Negative for headache, weakness, numbness, tingling, and seizure, Psych: Negative for depression, anxiety, suicide ideation, homicidal ideation, and hallucinations, Allergy/Immunology: Negative for hives, rash, and allergies, Endocrine: Negative for neck swelling, polydipsia, polyuria, polyphagia, and marked weight changes, Hematologic/Lymphatic: Negative for swollen nodes, abnormal bleeding, and unusual bruising. 05:46 ENT: Positive for of the left jaw. Exam: 05:46 Constitutional: This is a well developed, well nourished patient who is awake, alert, kashif and in no acute distress. Head/Face: Normocephalic, atraumatic. Eyes: Pupils equal round and reactive to light, extra-ocular motions intact. Lids and lashes normal. Conjunctiva and sclera are non-icteric and not injected. Cornea within normal limits. Periorbital areas with no swelling, redness, or edema. ENT: Nares patent. No nasal discharge, no septal abnormalities noted. Tympanic membranes are normal and external auditory canals are clear. Oropharynx with no redness, swelling, or masses, exudates, or evidence of obstruction, uvula midline. Mucous membranes moist. Neck: Trachea midline, no thyromegaly or masses palpated, and no cervical lymphadenopathy. Supple, full range of motion without nuchal rigidity, or vertebral point tenderness. No Meningismus. Chest/axilla: Normal chest wall appearance and motion. Nontender with no deformity. No lesions are appreciated. Cardiovascular: Regular rate and rhythm with a normal S1 and S2. No gallops, murmurs, or rubs. Normal PMI, no JVD. No pulse deficits. Respiratory: Lungs have equal breath sounds bilaterally, clear to auscultation and percussion. No rales, rhonchi or wheezes noted. No increased work of breathing, no retractions or nasal flaring. Abdomen/GI: Soft, non-tender, with normal bowel sounds. No distension or tympany. No guarding or rebound. No evidence of tenderness throughout. Back: No spinal tenderness. No costovertebral tenderness. Full range of motion. Skin: Warm, dry with normal turgor. Normal color with no rashes, no lesions, and no evidence of cellulitis. MS/ Extremity: Pulses equal, no cyanosis. Neurovascular intact. Full, normal range of motion. Neuro: Awake and alert, GCS 15, oriented to person, place, time, and situation. Cranial nerves II-XII grossly intact. Motor strength 5/5 in all extremities. Sensory grossly intact. Cerebellar exam normal. Normal gait. Psych: Awake, alert, with orientation to person, place and time. Behavior, mood, and affect are within normal limits. 05:46 Musculoskeletal/extremity: DVT Exam: No signs of deep vein thrombosis. no pain, no swelling, no tenderness, negative Homans' sign noted on exam, no appreciated bluish discoloration, no erythema, no increased warmth. 05:54 ECG was reviewed by the Attending Physician. [facility] Vital Signs: 05:24 BP 134 / 90; Pulse 72; Resp 18; Temp 98; Pulse Ox 99% ; Weight 111.58 kg; Height 5 ft. ea 6 in. (167.64 cm); 07:07 BP 117 / 60; Pulse 81; Resp 17; Pulse Ox 96% ; rb3 08:00 BP 122 / 71; Pulse 84; Resp 19; Pulse Ox 98% ; rb3 09:00 BP 124 / 84; Pulse 77; Resp 17; Pulse Ox 97% ; rb3 10:00 BP 129 / 84; Pulse 79; Resp 20; Pulse Ox 96% ; rb3 10:45 BP 137 / 94; Pulse 76; Resp 19; Pulse Ox 99% ; rb3 05:24 Body Mass Index 39.71 (111.58 kg, 167.64 cm) ea MDM: 05:28 Patient medically screened. kashif 05:34 Patient medically screened. kashif 05:49 Differential diagnosis: abnormal EKG, anxiety, esophagitis, hiatal hernia, myocarditis, kashif pancreatitis, pulmonary embolus, stable angina, unstable angina. HEART Score: History: Slightly Suspicious (0), ECG: Normal (0), Age: < or = 45 years (0), Risk Factors: 1 or 2 risk factors (1), [+ Family HX] Troponin: < or = 1 x Normal Limit (0). The patient's deep vein thrombosis risk score was calculated as follows: Total Score: 0. This patient was found to be at low risk for a deep vein thrombosis by using the Well's assessment criteria. The patient's pulmonary embolism risk score was calculated as follows: Total Score: 0-2 points. This patient was found to be at low risk for a pulmonary embolism by using the Well's assessment criteria. GADIEL Risk Score: TOTAL SCORE = 0. Data reviewed: vital signs, nurses notes, lab test result(s), EKG, radiologic studies, plain films. 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 Test interpretation: by ED physician or midlevel provider: ECG, plain radiologic studies. Counseling: I had a detailed discussion with the patient and/or guardian regarding: the historical points, exam findings, and any diagnostic results supporting the discharge/admit diagnosis, lab results, radiology results, the need for outpatient follow up, for definitive care, a beater room helper, a family practitioner. 07/20 05:27 Order name: Basic Metabolic Panel 07/20 05:27 Order name: CBC with Diff; Complete Time: 07:02 07/20 05:27 Order name: LFT's 07/20 05:27 Order name: Magnesium; Complete Time: 07:02 07/20 05:27 Order name: NT PRO-BNP; Complete Time: 07:02 07/20 05:27 Order name: PT-INR; Complete Time: 07:02 07/20 05:27 Order name: Troponin (emerg Dept Use Only); Complete Time: 07:02 07/20 05:27 Order name: XRAY Chest (1 view); Complete Time: 08:16 07/20 05:27 Order name: Basic Metabolic Panel; Complete Time: 07:02 EDVT 07/20 05:27 Order name: Liver (Hepatic) Function; Complete Time: 07:02 [facility] 07/20 05:46 Order name: D-Dimer; Complete Time: 09:10 [facility] 07/20 09:06 Order name: Urine Dipstick--Ancillary (enter results); Complete Time: 10:22 [facility] 07/20 09:06 Order name: Urine --Ancillary (enter results); Complete Time: 10:22 [facility] 07/20 09:10 Order name: CT Chest For PE Angio; Complete Time: 10:22 [facility] 07/20 05:27 Order name: EKG; Complete Time: 05:28 ea 07/20 05:27 Order name: Cardiac monitoring; Complete Time: 05:27 07/20 05:27 Order name: EKG - Nurse/Tech; Complete Time: 05:51 07/20 05:27 Order name: IV Saline Lock; Complete Time: 05:51 ea 07/20 05:27 Order name: Labs collected and sent; Complete Time: : ea 07/20 05:27 Order name: O2 Per Protocol; Complete Time: ea 07/20 05:27 Order name: O2 Sat Monitoring; Complete Time: 05: ea 07/20 05:46 Order name: Urine Dipstick-Ancillary (obtain specimen); Complete Time: 10:12 [facility] 07/20 05:46 Order name: Urine Test (obtain specimen); Complete Time: 10:12 [facility] EC:54 Rate is 71 beats/min. Rhythm is regular. QRS [place] is Normal. [place] interval is normal. QRS kashif interval is normal. QT interval is normal. No Q waves. T waves are Normal. No ST changes noted. Clinical impression: NSR w/ Non-specific ST/T Changes and LVH. Administered Medications: 06:00 Drug: Aspirin 81 mg Route: PO; rr5 06:22 Follow up: Response: No adverse reaction 06:11 Drug: NS 0.9% 1000 ml Route: IV; Rate: 1 bolus; Site: right antecubital; rr5 06:16 Not Given (Patient Refused): XANax (alprazolam) Tablet 1 mg PO once ea Disposition: 07/20/20 10:23 Discharged to Home. Impression: Chest pain, unspecified, Jaw pain, Anxiety disorder, unspecified. - Condition is Stable. - Discharge Instructions: Panic Attacks, Nonspecific Chest Pain, Chest Wall Pain, [id number], Nonspecific Chest Pain, [id number], Aspirin and Your Heart. - Prescriptions for Pepcid 20 mg Oral Tablet - take 1 tablet by ORAL route every 12 hours for 10 days; 20 tablet. Xanax 0.5 mg Oral Tablet - take 1 tablet by ORAL route every 8 hours As needed; 12 tablet. Tramadol 50 mg Oral Tablet - take 1 tablet by ORAL route every 8 hours as needed; 6 tablet. - Medication Reconciliation Form, Thank You Letter, Antibiotic Education, Prescription Opioid Use form. - Follow up: Private Physician; When: 2 - 3 days; Reason: Recheck today's complaints, Continuance of care, Re-evaluation by your physician. Follow up: Benedicto Henry; When: 2 - 3 days; Reason: Recheck today's complaints, Re-evaluation by your physician. - Problem is new. - Symptoms have improved. Signatures: Dispatcher [employer] EDJustin Snyder MD MD cha Rittger, Kevin, MD MD kdr Antunez, Elena RN RN Jamey Kirkland, RN RN rr5 Karey Lanier, RN RN rb3 Corrections: (The following items were deleted from the chart) 11:06 10:23 07/20/2020 10:23 Discharged to Home. Impression: Chest pain, unspecified; Jaw rb3 pain; Anxiety disorder, unspecified. Condition is Stable. Discharge Instructions: Panic Attacks, Nonspecific Chest Pain, Chest Wall Pain, [id number], Nonspecific Chest Pain, [id number], Aspirin and Your Heart. Prescriptions for Pepcid 20 mg Oral Tablet - take 1 tablet by ORAL route every 12 hours for 10 days; 20 tablet, Xanax 0.5 mg Oral Tablet - take 1 tablet by ORAL route every 8 hours As needed; 12 tablet. and Forms are Medication Reconciliation Form, Thank You Letter, Antibiotic Education, Prescription Opioid Use. Follow up: Private Physician; When: 2 - 3 days; Reason: Recheck today's complaints, Continuance of care, Re-evaluation by your physician. Follow up: Benedicto Henry; When: 2 - 3 days; Reason: Recheck today's complaints, Re-evaluation by your physician. Problem is new. Symptoms have improved. kdr
[2020-07-20 11:36] VITALS: BP 137/94; O2SAT 99
--- NOTE | 2020-07-21 06:47 | EKG ---
Test Date: 2020-07-20 Test Time: 05:36:41 Microbiology Technologist: SARITA MEASUREMENT RESULTS: Intervals: Rate: 71 NV: 162 QRSD: 94 QT: 396 QTc: 430 [place]: P: 21 NV: 162 QRS: 2 T: 9 INTERPRETIVE STATEMENTS: Normal sinus rhythm Minimal voltage criteria for LVH, may be normal variant Borderline ECG Compared to ECG 09/12/2018 10:05:00 No significant changes Electronically Signed On 07-21-20 06:44:33 CDT by Benedicto Henry
== END 2020-07-20 11:06 | disposition home or self-care (01) ==
LOC: ER 04:53
DX: F41.8 Other specified anxiety disorders (principal); R68.84 Jaw pain
CPT/HCPCS: 93005; 85025; 80048; 36415; 83735; 81025; 85610; 85379; 80076; 81003; 84484; 83880; 71275; 71045; 99285; Q9967; J7030

== ENCOUNTER 2024-04-04 21:44 | Emergency (ER) | payer OTHER, SELFPAY ==
--- OUTSIDE RECORDS SUMMARY | 2024-04-04 21:49 | XMS REPORT | Continuity of Care Document ---
Author Name Unknown Address [address] [facility] [address] [place] [address] [facility] thconnect Address 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 Phone TYRONE ESCOBAR Primary Care Physician LIZA Cuello Attending Clinician LIZA Tucker Attending Clinician Miguel wallis 2, [facility] Attending Clinician Unavailable Kiesha Oglesby MD Attending Clinician [phone] KIESHA OGLESBY Attending Clinician Unavailable Doctor Unassigned, [place] Attending Clinician U courtney Del Cid MAJuly Attending Clinician Liza Cuello MD Attending Clinician CHAMP LAIRD Attending Clinician Unavailable Krish Carey MD Attending Clinician [phone] KRISH CAREY Attending Clinician SHANICE Cantu Attending Clinician UnavailSHANICE Moyer Attending Clinician UnavailShantell Goldstein MA Attending Clinician SYLVAIN Ray Attending Clinician SYLVAIN Velazco Attending Clinician LEEANN Velazquez Attending Clinician UnavailMARIMAR Johnson Attending Clinician Unavailable Carmelina Patel PT Attending Clinician UnavailLeeann Forrest MD Attending Clinician [phone] Champ Laird MD Attending Clinician , [facility] Sleep Lab Bed Attending Clinician Unavail able MILA QUEZADA Attending Clinician Unavailabl e Pob, [facility] Lab Main Attending Clinician Unavailabl amber Only, [facility] Test Attending Clinician Unavailable Mila Quezada MD Attending Clinician [phone] [facility], [facility] Sleep Lab Attending Clinician Unavaila DANIE Hughes Attending Clinician Unavailable Eloina Landaverde MD Attending Clinician [phone] Nalini Vega Attending Clinician [phone] NALINI OSBORNE Attending Clinician UnavailDionte Mendoza DO Attending Clinician [phone] RYAN FRIAS Attending Clinician Unavailable Payers Payer Name Policy Type Policy Number Effective Date Expirati on Date Source [facility] MEDICAID [id number] 2018 00:00:00 Problems Condition Name Condition Details Condition Category Status Onset Date Resolution Date Last Treatment Date Treating Clinician Comments Source Morbid obesity with body mass index of 40.0-49.9 Morbid obesity with body mass index of 40.0-49.9 Disease Active 2019-04 0 00:00: 00 [facility] Allergies, Adverse Reactions, Alerts Allergy Name Allergy Type Status Severity Reaction(s) Onset Date Inactive Date Treating Clinician Comments Source NO KNOWN ALLERGIE S Drug Class Active [facility] Social History Social Habit Start Date Stop Date Quantity Comments Source Gender identity [facility] Sexual orientation U [facility] Alcohol intake 2023-07-04 00:00:00 2023-07-04 00:00:00 Current drinker of alcohol (finding) [facility] Exposure to SARS-CoV-2 (event) 2022-02-18 00:00:00 2022-02-28 11:19:[address] [facility] Tobacco use and exposure 2022-02-20 00:00:00 2022-02-20 00:00:[address] tobacco user [facility] Alcohol Comment 2021-06-20 00:00:00 2021-06-20 00:00:[address] [facility] History of Social function 2021-03-28 00:00:00 2021-03-28 00:00:00 [facility] History SDOH Alcohol Frequency 2020-02-22 00:00:00 2020-02-22 00:00:[address] [facility] History SDOH Alcohol Std Drinks 2020-02-22 00:00:00 2020-02-22 00:00:[address] [facility] History SDOH Alcohol Binge 2020-02-22 00:00:00 2020-02-22 00:00:[address] [facility] History of tobacco use 2019-10-27 00:00:[address] [facility] Sex Assigned At 1990 00:00:00 1990 00:00:00 [facility] Smoking Status Start Date Stop Date Source Ex-smoker 2022-02-20 00:00:00 2022-02-20 00[facility]00[facility]00 [facility] Ordered Medication Name Filled Medication Name Start Date Stop Date Current Medication? Ordering Clinician Indication Dosage Frequency Signature (SIG) Comments Components Source norethindro ne 0.35 mg tablet 07-03 00:00: 00 Yes [id number] .35mg Take 1 tablet by mouth in the morning. [facility] propranoloL 10 mg tablet 01-17 00:00: 00 Yes [facility] ibuprofen 600 mg tablet 2021-04 00:00: 00 Yes [id number] 600mg Take 1 tablet by mouth every 6 (six) hours as needed for Pain (scale 1-3) or Pain (scale 4-6). [facility] polyethylen e glycol 3350 (MIRALAX) 17 gram powder 2021-04 00:00: 00 Yes [id number] 1{packe t} Take 1 Packet by mouth as needed for Constipati on. [facility] norethindro ne 0.35 mg tablet 06-20 00:00: 00 07-03 00:00 :00 No [id number] .35mg Take 1 tablet by mouth daily. [facility] FLUoxetine 20 mg capsule 1-04 00:00: 00 Yes 20mg Take 20 mg by mouth daily. [facility] norethindro ne 0.35 mg tablet 2019-04 0 00:00: 00 06-20 00:00 :00 No [id number] .35mg Take 1 tablet by mouth daily. [facility] hydrOXYzine 25 mg tablet 05 00:00: 00 Yes every 8 (eight) hours as needed. [facility] FLUoxetine 10 mg tablet 09-16 00:00: 00 06-20 00:00 :00 No 20mg 20 mg. Q 2 days [facility] Immunizations Ordered Immunization Name Filled Immunization Name Date Status Comments Source Influenza Virus Vaccine Quad IM, Preserv and ABX Free 6 MO-64 YRS 2022-02-20 00:00:[address] [facility] Influenza Virus Vaccine Quad IM, Preserv and ABX Free 6 MO-64 YRS 2022-02-20 00:00:[address] [facility] Influenza Virus Vaccine Quad IM, Preserv and ABX Free 6 MO-64 YRS 2022-02-20 00:00:[address] [facility] Influenza Virus Vaccine Quad IM, Preserv and ABX Free -64 YRS 2022-02-20 00:00:[address] [facility] Influenza Virus Vaccine Quad IM, Preserv and ABX Free 6 MO-64 YRS 2022-02-20 00:00:[address] [facility] Influenza Virus Vaccine Quad IM, Preserv and ABX Free 6 MO-64 YRS 2022-02-20 00:00:[address] [facility] Influenza Virus Vaccine Quad IM, Preserv and ABX Free 6 MO-64 YRS 2022-02-20 00:00:[address] [facility] Influenza Virus Vaccine Quad IM, Preserv and ABX Free 6 MO-64 YRS 2022-02-20 00:00:[address] [facility] Influenza Virus Vaccine Quad IM, Preserv and ABX Free 6 MO-64 YRS 2022-02-20 00:00:[address] [facility] Influenza Virus Vaccine Quad IM, Preserv and ABX Free 6 MO-64 YRS 2022-02-20 00:00:[address] [facility] Influenza Virus Vaccine Quad IM, Preserv and ABX Free 6 MO-64 YRS 2021-06-20 00:00:[address] [facility] Influenza Virus Vaccine Quad IM, Preserv and ABX Free 6 MO-64 YRS 2021-06-20 00:00:[address] [facility] Influenza Virus Vaccine Quad IM, Preserv and ABX Free 6 MO-64 YRS 2021-06-20 00:00:[address] [facility] Influenza Virus Vaccine Quad IM, Preserv and ABX Free 6 MO-64 YRS 2021-06-20 00:00:[address] [facility] Influenza Virus Vaccine Quad IM, Preserv and ABX Free 6 MO-64 YRS 2021-06-20 00:00:[address] [facility] Influenza Virus Vaccine Quad IM, Preserv and ABX Free 6 MO-64 YRS 2021-06-20 00:00:[address] [facility] Influenza Virus Vaccine Quad IM, Preserv and ABX Free 6 MO-64 YRS 2021-06-20 00:00:[address] [facility] Influenza Virus Vaccine Quad IM, Preserv and ABX Free 6 MO-64 YRS 2021-06-20 00:00:[address] [facility] Influenza Virus Vaccine Quad IM, Preserv and ABX Free 6 MO-64 YRS 2021-06-20 00:00:[address] [facility] Influenza Virus Vaccine Quad IM, Preserv and ABX Free 6 MO-64 YRS 2021-06-20 00:00:[address] [facility] Influenza Virus Vaccine Quad IM, Preserv and ABX Free 6 MO-64 YRS 2021-06-20 00:00:[address] [facility] Influenza Virus Vaccine Quad IM, Preserv and ABX Free 6 MO-64 YRS 2021-06-20 00:00:[address] [facility] Influenza Virus Vaccine Quad IM, Preserv and ABX Free 6 MO-64 YRS 2021-06-20 00:00:[address] [facility] Influenza Virus Vaccine Quad IM, Preserv and ABX Free 6 MO-64 YRS 2021-06-20 00:00:[address] [facility] Influenza Virus Vaccine Quad .5 mL IM 6+ MO 2020-02-22 00:00:[address] [facility] Influenza Virus Vaccine Quad .5 mL IM 6+ MO 2020-02-22 00:00:[address] [facility] Influenza Virus Vaccine Quad .5 mL IM 6+ MO 2020-02-22 00:00:[address] [facility] Influenza Virus Vaccine Quad .5 mL IM 6+ MO 2020-02-22 00:00:[address] [facility] Influenza Virus Vaccine Quad .5 mL IM 6+ MO 2020-02-22 00:00:[address] [facility] Influenza Virus Vaccine Quad .5 mL IM 6+ MO 2020-02-22 00:00:[address] [facility] Influenza Virus Vaccine Quad .5 mL IM 6+ MO 2020-02-22 00:00:[address] [facility] Influenza Virus Vaccine Quad .5 mL IM 6+ MO 2020-02-22 00:00:[address] [facility] Influenza Virus Vaccine Quad .5 mL IM 6+ MO 2020-02-22 00:00:[address] [facility] Influenza Virus Vaccine Quad .5 mL IM 6+ MO 2020-02-22 00:00:[address] [facility] Influenza Virus Vaccine Quad .5 mL IM 6+ MO 2020-02-22 00:00:[address] [facility] Influenza Virus Vaccine Quad .5 mL IM 6+ MO 2020-02-22 00:00:[address] [facility] Influenza Virus Vaccine Quad .5 mL IM 6+ MO 2020-02-22 00:00:[address] [facility] Influenza Virus Vaccine Quad .5 mL IM 6+ MO 2020-02-22 00:00:[address] [facility] Rho (d) Immune Globulin 2018-10-22 00:00:[address] [facility] Rho (d) Immune Globulin 2018-10-22 00:00:[address] [facility] Rho (d) Immune Globulin 2018-10-22 00:00:[address] [facility] Rho (d) Immune Globulin 2018-10-22 00:00:[address] [facility] Rho (d) Immune Globulin 2018-10-22 00:00:[address] [facility] Rho (d) Immune Globulin 2018-10-22 00:00:[address] [facility] Rho (d) Immune Globulin 2018-10-22 00:00:[address] [facility] Rho (d) Immune Globulin 2018-10-22 00:00:[address] [facility] Rho (d) Immune Globulin 2018-10-22 00:00:[address] [facility] Rho (d) Immune Globulin 2018-10-22 00:00:[address] [facility] Rho (d) Immune Globulin 2018-10-22 00:00:[address] [facility] Rho (d) Immune Globulin 2018-10-22 00:00:[address] [facility] Rho (d) Immune Globulin 2018-10-22 00:00:[address] [facility] Rho (d) Immune Globulin 2018-10-22 00:00:[address] [facility] TDAP (ADACEL) VACCINE 2018-10-08 00:00:[address] [facility] TDAP (ADACEL) VACCINE 2018-10-08 00:00:[address] [facility] TDAP (ADACEL) VACCINE 2018-10-08 00:00:[address] [facility] TDAP (ADACEL) VACCINE 2018-10-08 00:00:[address] [facility] TDAP (ADACEL) VACCINE 2018-10-08 00:00:[address] [facility] TDAP (ADACEL) VACCINE 2018-10-08 00:00:[address] [facility] TDAP (ADACEL) VACCINE 2018-10-08 00:00:[address] [facility] TDAP (ADACEL) VACCINE 2018-10-08 00:00:[address] [facility] TDAP (ADACEL) VACCINE 2018-10-08 00:00:[address] [facility] TDAP (ADACEL) VACCINE 2018-10-08 00:00:[address] [facility] TDAP (ADACEL) VACCINE 2018-10-08 00:00:[address] [facility] TDAP (ADACEL) VACCINE 2018-10-08 00:00:[address] [facility] TDAP (ADACEL) VACCINE 2018-10-08 00:00:[address] [facility] TDAP (ADACEL) VACCINE 2018-10-08 00:00:[address] [facility] Rho (d) Immune Globulin Unknown Completed [facility] Influenza Virus Vaccine Quad .5 mL IM 6+ MO (FLUZONE/FLULAVAL/F LUARIX) Unknown Completed [facility] Influenza Virus Vaccine Quad IM, Preserv and ABX Free 6 MO-64 YRS (FLUCELVAX) Unknown Completed [facility] TDAP (ADACEL) VACCINE Unknown Completed [facility] Rho (d) Immune Globulin Unknown Completed [facility] Influenza Virus Vaccine Quad .5 mL IM 6+ MO (FLUZONE/FLULAVAL/F LUARIX) Unknown Completed [facility] Influenza Virus Vaccine Quad IM, Preserv and ABX Free 6 MO-64 YRS (FLUCELVAX) Unknown Completed [facility] TDAP (ADACEL) VACCINE Unknown Completed [facility] Rho (d) Immune Globulin Unknown Completed [facility] Influenza Virus Vaccine Quad .5 mL IM 6+ MO (FLUZONE/FLULAVAL/F LUARIX) Unknown Completed [facility] Influenza Virus Vaccine Quad IM, Preserv and ABX Free 6 MO-64 YRS (FLUCELVAX) Unknown Completed [facility] TDAP (ADACEL) VACCINE Unknown Completed [facility] Rho (d) Immune Globulin Unknown Completed [facility] Influenza Virus Vaccine Quad .5 mL IM 6+ MO (FLUZONE/FLULAVAL/F LUARIX) Unknown Completed [facility] TDAP (ADACEL) VACCINE Unknown Completed [facility] Rho (d) Immune Globulin Unknown Completed [facility] Influenza Virus Vaccine Quad .5 mL IM 6+ MO (FLUZONE/FLULAVAL/F LUARIX) Unknown Completed [facility] TDAP (ADACEL) VACCINE Unknown Completed [facility] Rho (d) Immune Globulin Unknown Completed [facility] Influenza Virus Vaccine Quad .5 mL IM 6+ MO (FLUZONE/FLULAVAL/F LUARIX) Unknown Completed [facility] TDAP (ADACEL) VACCINE Unknown Completed [facility] Rho (d) Immune Globulin Unknown Completed [facility] Influenza Virus Vaccine Quad .5 mL IM 6+ MO (FLUZONE/FLULAVAL/F LUARIX) Unknown Completed [facility] TDAP (ADACEL) VACCINE Unknown Completed [facility] Rho (d) Immune Globulin Unknown Completed [facility] Influenza Virus Vaccine Quad .5 mL IM 6+ MO (FLUZONE/FLULAVAL/F LUARIX) Unknown Completed [facility] TDAP (ADACEL) VACCINE Unknown Completed [facility] Rho (d) Immune Globulin Unknown Completed [facility] TDAP (ADACEL) VACCINE Unknown Completed [facility] Rho (d) Immune Globulin Unknown Completed [facility] Influenza Virus Vaccine Quad .5 mL IM 6+ MO (FLUZONE/FLULAVAL/F LUARIX) Unknown Completed [facility] Influenza Virus Vaccine Quad IM, Preserv and ABX Free 6 MO-64 YRS (FLUCELVAX) Unknown Completed [facility] TDAP (ADACEL) VACCINE Unknown Completed [facility] Rho (d) Immune Globulin Unknown Completed [facility] Influenza Virus Vaccine Quad .5 mL IM 6+ MO (FLUZONE/FLULAVAL/F LUARIX) Unknown Completed [facility] Influenza Virus Vaccine Quad IM, Preserv and ABX Free 6 MO-64 YRS (FLUCELVAX) Unknown Completed [facility] TDAP (ADACEL) VACCINE Unknown Completed [facility] Rho (d) Immune Globulin Unknown Completed [facility] Influenza Virus Vaccine Quad .5 mL IM 6+ MO (FLUZONE/FLULAVAL/F LUARIX) Unknown Completed [facility] Influenza Virus Vaccine Quad IM, Preserv and ABX Free 6 MO-64 YRS (FLUCELVAX) Unknown Completed [facility] TDAP (ADACEL) VACCINE Unknown Completed [facility] Rho (d) Immune Globulin Unknown Completed [facility] Influenza Virus Vaccine Quad .5 mL IM 6+ MO (FLUZONE/FLULAVAL/F LUARIX) Unknown Completed [facility] Influenza Virus Vaccine Quad IM, Preserv and ABX Free 6 MO-64 YRS (FLUCELVAX) Unknown Completed [facility] TDAP (ADACEL) VACCINE Unknown Completed [facility] Rho (d) Immune Globulin Unknown Completed [facility] Influenza Virus Vaccine Quad .5 mL IM 6+ MO (FLUZONE/FLULAVAL/F LUARIX) Unknown Completed [facility] Influenza Virus Vaccine Quad IM, Preserv and ABX Free 6 MO-64 YRS (FLUCELVAX) Unknown Completed [facility] TDAP (ADACEL) VACCINE Unknown Completed [facility] Vital Signs Vital Name Observation Time Observation Value Comments S pamela Systolic blood pressure 2023-07-04 19:51:00 122 mm[Hg] [facility] Diastolic blood pressure 2023-07-04 19:51:00 79 mm[Hg] [facility] Heart rate 2023-07-04 19:51:00 105 /min [facility] Body temperature 2023-07-04 19:51:[address] [facility] Respiratory rate 2023-07-04 19:51:00 18 /min [facility] Body height 2023-07-04 19:51:00 162.6 cm [facility] Body weight 2023-07-04 19:51:00 115.667 kg [facility] BMI 2023-07-04 19:51:00 43.77 kg/m2 [facility] Systolic blood pressure 2023-04-30 20:16:00 119 mm[Hg] [facility] Diastolic blood pressure 2023-04-30 20:16:00 56 mm[Hg] [facility] Heart rate 2023-04-30 20:16:00 84 /min [facility] Respiratory rate 2023-04-30 20:16:00 16 /min [facility] Body height 2023-04-30 20:16:00 162.6 cm [facility] Body weight 2023-04-30 20:16:00 114.896 kg [facility] BMI 2023-04-30 20:16:00 43.48 kg/m2 [facility] Oxygen saturation in Arterial blood by Pulse oximetry 2023-04-30 20:16:00 96 /min [facility] Systolic blood pressure 2023-03-06 21:47:00 109 mm[Hg] [facility] Diastolic blood pressure 2023-03-06 21:47:00 72 mm[Hg] [facility] Heart rate 2023-03-06 21:47:00 80 /min [facility] Body height 2023-03-06 21:47:00 162.6 cm [facility] Body weight 2023-03-06 21:47:00 113.898 kg [facility] BMI 2023-03-06 21:47:00 43.10 kg/m2 [facility] Oxygen saturation in Arterial blood by Pulse oximetry 2023-03-06 21:47:00 98 /min [facility] Systolic blood pressure 2022-02-20 18:53:00 125 mm[Hg] [facility] Diastolic blood pressure 2022-02-20 18:53:00 78 mm[Hg] [facility] Heart rate 2022-02-20 18:53:00 97 /min [facility] Body temperature 2022-02-20 18:53:[address] [facility] Respiratory rate 2022-02-20 18:53:00 18 /min [facility] Body height 2022-02-20 18:53:00 162.6 cm [facility] Body weight 2022-02-20 18:53:00 107.956 kg [facility] BMI 2022-02-20 18:53:00 40.85 kg/m2 [facility] Procedures Procedure Date / Time Performed Performing Clinician Source CONSENT FOR CONTRACEPTION 2023-07-04 06:01:00 Do ctor Unassigned, [place] [facility] POCT TEST 2023-07-04 00:00:[address] [facility] ASSIGNMENT OF BENEFITS 2023-04-30 20:10:07 Tyson r Unassigned, [place] [facility] PATIENT FINANCIAL POLICY 2023-03-06 21:01:24 Doctor Unassigned, [place] [facility] INSURANCE CORRESPONDENCE 2022-05-27 06:01:00 Doc samara Unassigned, [place] [facility] INSURANCE CORRESPONDENCE 2022-04-24 06:01:00 Doc samara Unassigned, [place] [facility] ASSIGNMENT OF BENEFITS 2022-04-09 20:59:29 Doccirilo r Unassigned, [place] [facility] US ABDOMEN LIMITED 2022-02-28 17:10:00 [facility]SV[facility]INAL 2022-02-28 16:52:[address] [facility] NOTICE OF PRIVACY PRACTICES 2022-02-28 16:18:13 Doctor Unassigned, [place] [facility] CONSENT/REFUSAL FOR DIAGNOSIS AND TREATMENT 2022-02-28 16:17:33 Doctor Unassigned, [place] [facility] ASSIGNMENT OF BENEFITS 2022-02-28 16:17:18 Docto r Unassigned, [place] [facility] FLU VACC ([id number]), 6 MO-64 YRS, .5ML, IM, QUAD (FLUCELVAX) 2022-02-20 19:58:[address] [facility] POCT URINALYSIS W/O SPECIFIC GRAVITY 2022-02-20 00:00:[address] [facility] INSURANCE CORRESPONDENCE 2021-08-24 05:01:00 Saad pascual Unassigned, [place] [facility] DME/SUPPLY JUSTIFICATION 2021-08-03 05:01:00 Saad pascual Unassigned, [place] [facility] Encounters Start Date/Time End Date/Time Encounter Type Admission Type Attending [facility] Care Department Encounter ID Source 2021-02-23 08:32:[address] [facility] [id number] [facility] 2024-01-21 11:02:04 2024-01-21 11:02:04 Outpatient [facility] [id number] Irvin Lundberg Charles 2024-01-07 14:08:56 2024-01-07 14:08:56 Outpatient [facility] [id number] Irvin Tamika Charles 2023-11-14 11:10:01 2023-11-14 11:10:01 Outpatient [facility] [id number] Irvin F Charles 2023-10-20 16:30:45 2023-10-20 16:30:45 Outpatient [facility] [id number] Irvin Tamika Charles 2023-09-24 11:05:20 2023-09-24 11:05:20 Outpatient [facility] [id number] Irvin Lundberg [facility] 2023-08-27 16:29:25 2023-08-27 16:29:25 Outpatient [place] [id number] Irvin Lundberg [facility] 2023-07-29 16:30:13 2023-07-29 16:30:13 Outpatient [facility] [id number] Irvin Lundberg [facility] 2023-07-16 16:30:46 2023-07-16 16:30:46 Outpatient [place] [id number] Irvin Lundberg [facility] 2023-07-04 14:30:00 2023-07-04 14:45:00 Vp Public Relations Visit 2, Adc Lab DevinKiesha cooper [facility] [id number] [facility] 2023-07-04 13:30:00 2023-07-04 14:28:07 Outpatient R MENDEL KIESHA [facility] [id number] [facility] 2023-07-04 13:30:00 2023-07-04 14:28:07 Office Visit DevinKiesha cooper [facility] [id number] [facility] 2023-07-04 00:00:00 2023-07-04 00:00:00 Orders Only Doctor Unassigned, [place] [facility] [id number] [facility] 2023-07-01 17:20:23 2023-07-01 17:20:23 Outpatient [place] [id number] Irvin Lundberg [facility] 2023-06-27 00:00:00 2023-06-27 00:00:00 Pre Visit Outreach Eugenia Del Cid [id number] [facility] 2023-04-30 14:00:00 2023-04-30 14:34:15 Outpatient R LIZA ARANA STRAKSApurva [facility] [id number] [facility] 2023-04-30 14:00:00 2023-04-30 14:34:15 Office Visit Liza Arana [facility] [id number] [facility] 2023-04-30 00:00:00 2023-04-30 00:00:00 Orders Only Doctor Unassigned, [place] [facility] [id number] [facility] 2023-04-02 15:30:00 2023-04-02 15:30:00 Outpatient R SISI [facility] [id number] [facility] 2023-03-19 15:15:00 2023-03-19 15:15:00 Outpatient R CHAMP LAIRD [facility] [id number] [facility] 2023-03-06 14:40:00 2023-03-06 15:00:00 [facility]..[facility].114 350.1.13.10 4.2.7.2.686 [id number] [facility] 2023-03-06 14:40:00 2023-03-06 14:40:00 [facility] [id number] [facility] 2023-03-06 00:00:00 2023-03-06 00:00:00 Orders Only Doctor Unassigned, [place] [facility] 1.2840.114 350.1.13.10 4.2.7.2.686 [id number] [facility] 2023-03-03 15:00:00 2023-03-03 15:00:00 Outpatient R SHANICE BALLARDERISHANICE [facility] [id number] [facility] 2023-02-05 15:00:00 2023-02-05 15:00:00 Outpatient R SHANICE BALLARDCYNTHIASHANICE RAMIREZ [facility] [id number] [facility] 2023-01-30 15:00:00 2023-01-30 15:00:00 Outpatient R KRISH CAREY [facility] [id number] [facility] 2023-01-17 16:19:36 2023-01-17 16:19:36 Outpatient [place] [place] [id number] Irvin Soto 2023-01-17 13:30:00 2023-01-17 13:30:00 Outpatient R CHAMP LAIRD [facility] [id number] [facility] 2022-12-30 17:29:19 2022-12-30 17:29:19 Outpatient [facility] [place] [id number] Irvin Soto 2022-12-09 16:33:04 2022-12-09 16:33:04 Outpatient [facility] [id number] Irvin Lundberg Charles 2022-11-19 16:33:28 2022-11-19 16:33:28 Outpatient [place] [id number] Irvin Soto 2022-11-05 16:35:51 2022-11-05 16:35:51 Outpatient [facility] [id number] Irvin Soto 2022-11-04 00:00:00 2022-11-04 00:00:00 Case Management Shantell Lopez 1..840.114 350.1.13.10 4.2.7.2.686 [id number] [facility] 2022-09-13 16:15:00 2022-09-13 16:15:00 Outpatient R CHU-DANIEL S, SYLVAIN CHU-DANIEL S, SYLVAIN [facility] [id number] [facility] 2022-08-23 15:15:00 2022-08-23 15:15:00 Outpatient R CHU-DANIEL S, SYLVAIN CHU-DANIEL S, SYLVAIN [facility] [id number] [facility] 2022-08-14 15:46:27 2022-08-14 15:46:27 Outpatient [facility] [id number] Irvin Soto 2022-06-21 15:00:00 2022-06-21 15:00:00 Outpatient KIESHA PUGH [facility] [id number] [facility] 2022-06-21 15:00:00 2022-06-21 15:00:00 Outpatient KIESHA PUGH [facility] [id number] [facility] 2022-06-21 15:00:00 2022-06-21 15:00:00 Outpatient Jong [facility] [id number] [facility] 2022-05-27 11:16:24 2022-05-27 11:16:24 Outpatient [facility] [id number] Irvin Soto 2022-05-27 00:00:00 2022-05-27 00:00:00 Orders Only Doctor Unassigned, [place] [facility] 1.2.840.114 350.1.13.10 4.2.7.2.686 [id number] [facility] 2022-05-24 15:33:29 2022-05-24 15:33:29 Outpatient [facility] [id number] Irvin Soto 2022-04-30 15:00:00 2022-04-30 15:00:00 Outpatient LEEANN ADDISON [facility] [id number] [facility] 2022-04-26 15:00:00 2022-04-26 15:00:00 Outpatient MARIMAR SAUCEDA [facility] [id number] [facility] 2022-04-24 00:00:00 2022-04-24 00:00:00 Orders Only Doctor Unassigned, [place] [facility] 1..840.114 350.1.13.10 4.2.7.2.686 [id number] [facility] 2022-04-09 15:00:00 2022-04-09 16:07:17 Outpatient LEEANN ADDISON [facility] [id number] [facility] 2022-04-09 15:00:00 2022-04-09 16:07:17 Ancillary Visit Carmelina Patel Craig L [facility] 1..840.114 350.1.13.10 4.2.7.2.686 [id number] [facility] 2022-04-09 13:15:00 2022-04-09 13:15:00 Outpatient CHAMP ENRIQUEZ [facility] [id number] [facility] 2022-04-09 00:00:00 2022-04-09 00:00:00 Orders Only Doctor Unassigned, [place] [facility] 1..840.114 350.1.13.10 4.2.7.2.686 [id number] [facility] 2022-04-01 15:00:00 2022-04-01 15:00:00 Outpatient Jong [facility] [id number] [facility] 2022-03-29 13:30:00 2022-03-29 13:30:00 Outpatient MARIMAR SAUCEDA [facility] [id number] [facility] 2022-03-20 11:00:00 2022-03-20 11:00:00 Outpatient CHAMP ENRIQUEZ [facility] [id number] [facility] 2022-03-18 00:00:00 2022-03-18 00:00:00 Telephone Laird, Champ [facility] 1.2.840.114 350.1.13.10 4.2.7.2.686 [id number] [facility] 2022-03-05 13:00:00 2022-03-05 13:00:00 Outpatient R LEEANN MANNING [facility] [id number] [facility] 2022-03-01 00:00:00 2022-03-01 00:00:00 Telephone Champ Laird [facility] 1.2840.114 350.1.13.10 4.2.7.2.686 [id number] [facility] 2022-02-28 11:30:23 2022-02-28 23:59:00 Hospital Encounter Champ Laird [facility] 1.2840.114 350.1.13.10 4.2.7.2.686 [id number] [facility] 2022-02-28 11:19:59 2022-02-28 11:29:00 Outpatient R CHAMP LAIRD [facility] [id number] [facility] 2022-02-28 11:00:00 2022-02-28 11:29:00 Hospital Encounter Champ Laird [facility] 1.2840.114 350.1.13.10 4.2.7.2.686 [id number] [facility] 2022-02-20 13:45:00 2022-02-20 15:04:35 Outpatient R CHAMP LAIRD [facility] [id number] [facility] 2022-02-20 13:45:00 2022-02-20 15:04:35 Office Visit Champ Laird [facility] 1.2.840.114 350.1.13.10 4.2.7.2.686 [id number] [facility] 2022-02-18 00:00:00 2022-02-18 00:00:00 Telephone Kiesha Oglesby [facility] 1.2.840.114 350.1.13.10 4.2.7.2.686 [id number] [facility] 2021-08-24 00:00:00 2021-08-24 00:00:00 Orders Only Doctor Unassigned, [place] [facility] 1.2.840.114 350.1.13.10 4.2.7.2.686 [id number] [facility] 2021-08-03 00:00:00 2021-08-03 00:00:00 Orders Only Doctor Unassigned, [place] [facility] 1.2.840.114 350.1.13.10 4.2.7.2.686 [id number] [facility] 2021-07-27 00:00:00 2021-07-27 00:00:00 Telephone Krish Carey [facility] 1..840.114 350.1.13.10 4.2.7.2.686 [id number] [facility] 2021-07-18 15:00:00 2021-07-18 15:20:00 Office Visit Liza Arana [facility] 1.2.840.114 350.1.13.10 4.2.7.2.686 [id number] [facility] 2021-07-18 15:00:00 2021-07-18 15:00:00 Outpatient R LIZA ARANA STRAHIL [facility] [id number] [facility] 2021-07-18 00:00:00 2021-07-18 00:00:00 Orders Only Doctor Unassigned, [place] [id number] 350.1.13.10 4.2.7.2.686 [id number] [facility] 2021-07-12 19:30:00 2021-07-12 19:30:00 Outpatient R LIZA ARANA STRAHIL [facility] [id number] [facility] 2021-07-11 00:00:00 2021-07-11 00:00:00 Telephone Liza Arana [facility] 1..840.114 350.1.13.10 4.2.7.2.686 [id number] [facility] 2021-07-10 11:45:00 2021-07-10 11:45:00 Outpatient R [facility] [id number] [facility] 2021-07-06 15:30:00 2021-07-06 15:30:00 Outpatient R KIESHA OGLESBY [facility] [id number] [facility] 2021-06-23 19:30:00 2021-06-23 22:00:00 Vp Public Relations Visit 1, [facility] Sleep Lab Bed Liza Arana [facility] 1.840.114 350.1.13.10 4.2.7.2.686 [id number] [facility] 2021-06-23 19:30:00 2021-06-23 19:30:00 Outpatient R LIZA ARANA STRAHIL [facility] [id number] [facility] 2021-06-23 19:30:00 2021-06-23 19:30:00 Outpatient R LIZA ARANA STRAKSL [facility] [id number] [facility] 2021-06-23 00:00:00 2021-06-23 00:00:00 Orders Only Doctor Unassigned, [place] [facility] 1..840.114 350.1.13.10 4.2.7.2.686 [id number] [facility] 2021-06-20 15:00:00 2021-06-20 15:46:40 Outpatient MILA CELIS [facility] [id number] [facility] 2021-06-20 15:15:00 2021-06-20 15:30:00 Vp Public Relations Visit Pob, Adc Lab Main Adallison [facility] 1..840.114 350.1.13.10 4.2.7.2.686 [id number] [facility] 2021-06-20 15:15:00 2021-06-20 15:15:00 Outpatient R MENDEL [facility] [id number] [facility] 2021-06-20 15:00:00 2021-06-20 15:15:00 Laboratory Only Only, Adc Test Lina [facility] ..840.114 350.1.13.10 4.2.7.2.686 [id number] [facility] 2021-06-20 15:00:00 2021-06-20 15:00:00 Outpatient MILA CELIS [facility] [id number] [facility] 2021-06-20 13:30:00 2021-06-20 14:49:02 Office Visit Mendel [facility] 1..840.114 350.1.13.10 4.2.7.2.686 [id number] [facility] 2021-06-20 13:30:00 2021-06-20 14:49:02 Outpatient R MENDEL [facility] [id number] [facility] 2021-06-20 13:30:00 2021-06-20 13:30:00 Outpatient R MENDEL [facility] [id number] [facility] 2021-06-06 11:00:00 2021-06-06 11:20:00 Office Visit Liza Arana [facility] 1.2.840.114 350.1.13.10 4.2.7.2.686 [id number] [facility] 2021-06-06 11:00:00 2021-06-06 11:00:00 Outpatient R LIZA ARANA STRAHIL [facility] [id number] [facility] 2021-05-31 00:00:00 2021-05-31 00:00:00 Telephone Liza Arana [facility] 1.2.840.114 350.1.13.10 4.2.7.2.686 [id number] [facility] 2021-05-29 00:00:00 2021-05-29 00:00:00 Patient Secure Msg Doctor Unassigned, [place] [facility] 1..840.114 350.1.13.10 4.2.7.2.686 [id number] [facility] 2021-05-22 14:00:00 2021-05-22 14:00:00 Outpatient R [facility] [id number] [facility] 2021-05-22 13:00:00 2021-05-22 13:15:00 Vp Public Relations Visit [facility] Liza Arana [facility] 1.2.840.114 350.1.13.10 4.2.7.2.686 [id number] [facility] 2021-05-22 13:00:00 2021-05-22 13:00:00 Outpatient R LIZA ARANA STRAHIL [facility] [id number] [facility] 2021-05-22 00:00:00 2021-05-22 00:00:00 Orders Only Doctor Unassigned, [place] [facility] 1.2.840.114 350.1.13.10 4.2.7.2.686 [id number] [facility] 2021-05-17 15:00:00 2021-05-17 15:00:00 Outpatient R CHAMP LAIRD [facility] [id number] [facility] 2021-05-15 14:00:00 2021-05-15 14:00:00 Outpatient R RUTH STRAHIL ATANASRAEGAN, STRAHIL [facility] [id number] [facility] 2021-05-01 12:00:00 2021-05-01 12:00:00 Outpatient R ALEX ARANAL RUTH, STRAHIL [facility] [id number] [facility] 2021-04-27 13:00:00 2021-04-27 13:00:00 Outpatient R [facility] [id number] [facility] 2021-04-18 00:00:00 2021-04-18 00:00:00 Patient Secure Krish Garrett [facility] 1.2.840.114 350.1.13.10 4.2.7.2.686 [id number] [facility] 2021-04-12 14:00:00 2021-04-12 14:00:00 Outpatient R ALEX ARANAL ATANASRAEGAN, STRAHIL [facility] [id number] [facility] 2021-04-12 14:00:00 2021-04-12 14:00:00 Outpatient R CORETTA ARANAHIL JEREMIAHNASRAEGAN, STRAHIL [facility] [id number] [facility] 2021-04-11 13:30:00 2021-04-11 13:30:00 Outpatient R KIESHA OGLESBY [facility] [id number] [facility] 2021-04-11 12:00:00 2021-04-11 12:00:00 Outpatient R [facility] [id number] [facility] 2021-04-10 00:00:00 2021-04-10 00:00:00 Patient Secure [facility] 1.2.840.114 350.1.13.10 4.2.7.2.686 [id number] [facility] 2021-04-09 14:42:22 2021-04-09 23:59:00 [facility] [id number] [facility] 2021-04-09 14:42:22 2021-04-09 23:59:00 [facility] 1.2.840.114 350.1.13.10 4.2.7.2.686 [id number] [facility] 2021-04-09 14:00:00 2021-04-09 14:41:00 [facility] 1.2.840.114 350.1.13.10 4.2.7.2.686 [id number] [facility] 2021-04-09 13:00:00 2021-04-09 13:00:00 Outpatient R [facility] [id number] [facility] 2021-04-03 16:00:00 2021-04-03 16:00:00 [facility] [id number] [facility] 2021-03-28 14:00:00 2021-03-28 14:48:24 [facility] 1.2.840.114 350.1.13.10 4.2.7.2.686 [id number] [facility] 2021-03-28 14:00:00 2021-03-28 14:48:24 [facility] [id number] [facility] 2021-03-28 14:00:00 2021-03-28 14:48:24 [facility] [id number] [facility] 2021-03-28 14:00:00 2021-03-28 14:48:24 Outpatient R CHERRY [facility] [id number] [facility] 2021-03-28 14:00:00 2021-03-28 14:00:00 Outpatient R CHERRY [facility] [id number] [facility] 2021-03-28 00:00:00 2021-03-28 00:00:00 Orders Only Doctor Unassigned, [place] [facility] 1.2.840.114 350.1.13.10 4.2.7.2.686 [id number] [facility] 2021-03-08 10:30:00 2021-03-08 10:30:00 Outpatient R GRANT DANIE [facility] [id number] [facility] 2021-02-27 15:30:00 2021-02-27 15:30:00 Outpatient Jong OGLESBY [facility] [id number] [facility] 2021-01-29 12:47:44 2021-01-29 13:06:36 [facility] Medical Office Building 1.2.840.114 350.1.13.10 4.2.7.2.686 [id number] [facility] 2021-01-29 13:00:00 2021-01-29 13:00:00 Outpatient [facility] [id number] [facility] 2020-11-01 00:00:00 2020-11-01 00:00:00 Outpatient R MENDEL [facility] [id number] [facility] 2020-10-27 00:00:00 2020-10-27 00:00:00 Patient Secure Msg Kiesha Oglesby [facility] 1.2.840.114 350.1.13.10 4.2.7.2.686 [id number] [facility] 2020-10-25 15:00:00 2020-10-25 15:00:00 Outpatient R ADKIESHA COOPER [facility] [id number] [facility] 2020-07-18 00:00:00 2020-07-18 00:00:00 Patient Outreach Dionte Coyle [facility] 1.2.840.114 350.1.13.10 4.2.7.2.686 [id number] 2020-03-02 00:00:00 2020-03-02 00:00:00 Patient Secure Msg AdKiesha cooper [facility] BUILDING 1.2.840.114 350.1.13.10 4.2.7.2.686 [id number] [facility] 2020-02-22 10:00:40 2020-02-22 11:25:17 Office Visit Kiesha Oglesby [facility] 1.2.840.114 350.1.13.10 4.2.7.2.686 [id number] 2020-02-22 10:00:00 2020-02-22 10:00:00 Outpatient R KIESHA OGLESBY [facility] [id number] [facility] 2020-02-21 00:00:00 2020-02-21 00:00:00 Patient Secure Msg Doctor Unassigned, [place] [facility] BUILDING 1.2.840.114 350.1.13.10 4.2.7.2.686 [id number] [facility] 2020-02-16 15:45:00 2020-02-16 15:45:00 Outpatient DANIE JONES [facility] [id number] [facility] 2020-01-25 15:30:00 2020-01-25 15:30:00 Outpatient DANIE JONES [facility] [id number] [facility] 2020-01-12 10:00:00 2020-01-12 10:00:00 Outpatient DANIE JONES [facility] [id number] [facility] 2019-12-10 08:30:00 2019-12-10 08:30:00 Outpatient DANIE JONES [facility] [id number] [facility] 2019-12-06 14:00:00 2019-12-06 14:00:00 Outpatient DANIE JONES [facility] [id number] [facility] 2019-10-21 14:00:00 2019-10-21 14:00:00 Outpatient Jong MORELFRIAS, LUCY [facility] [id number] [facility] 2019-10-21 09:00:00 2019-10-21 09:00:00 Outpatient Jong BOWERSFRIASRYAN STERLING [facility] [id number] [facility] 2019-10-15 09:30:00 2019-10-15 09:30:00 Outpatient DANIE JONES [facility] [id number] [facility] Results Test Description Test Time Test Comments Results Result Co mments Source [facility] [id number] 01:52:25* Test Item Value Reference Range Interpretation Comme nts VITAMIN D, 25 OH (test code = 4958) 30 NG/ML SEE BELOW EFFECTIVE 12/2022, PLEASE NOTE NEW METHODOLOGY IS ELECTROCHEMILUMINESCENCE BINDING ASSAY. NOTE: 25-HYDROXYVITAMIN D ASSAY INCLUDES 25-HYDROXYVITAMIN D2 AND D3. INTERPRETIVE RANGES PEDIATRIC (<17 YEARS) . . . . . . . . . . . NG/ML 20-100ADULT: INSUFFICIENT . . . . . . . . . . . . . . NG/ML <20 SUBOPTIMAL . . . . . . . . . . . . . . . NG/ML 20-29 OPTIMAL . . . . . . . . . . . . . . . . . NG/ML 30-100 TSH, THIRD [id number] 01:52:02* Test Item Value Reference Range Interpretation Comme nts TSH, THIRD GENERATION (test code = 2821) 2.410 UIU/ML 0.400-4.100 COMPREHENSIVE METABOLIC [id number] 00:13:47* Test Item Value Reference Range Interpretation Comme nts GLUCOSE (test code = 2217) 119 MG/DL 70-99 H BUN (test code = 2207) 9 MG/DL 6-20 CREATININE (test code = 2214) 0.71 MG/DL 0.60-1.30 eGFR (2020 CKD-EPI) (test code = 41901) 116 ML/MIN/1.73 >60 CALC BUN/CREAT (test code = 2235) 13 RATIO 6-28 SODIUM (test code = 223) 140 MEQ/L 133-146 POTASSIUM (test code = 2228) 4.3 MEQ/L 3.5-5.4 CHLORIDE (test code = 2215) 102 MEQ/L 95-107 CARBON DIOXIDE (test code = 2206) 23 MEQ/L 19-31 CALCIUM (test code = 2209) 10.0 MG/DL 8.5-10.5 PROTEIN, TOTAL (test code = 2229) 8.0 G/DL 6.1-8.3 ALBUMIN (test code = 2201) 4.4 G/DL 3.5-5.2 CALC GLOBULIN (test code = 2240) 3.6 G/DL 1.9-3.7 CALC A/G RATIO (test code = 2234) 1.2 RATIO 1.0-2.6 BILIRUBIN, TOTAL (test code = 2207) 0.4 MG/DL <=1.2 ALKALINE PHOSPHATASE (test code = 2204) 116 U/L 40-114 H AST (test code = 2218) 32 U/L 9-40 ALT (test code = 2219) 48 U/L 5-40 H UNLESS OTHERWISE INDICATED, ALL TESTING PERFORMED AT [facility] [address] [place] [address] TRANSPLANT SURGEON: OSORIO REED M.D. CLIA NUMBER [id number] [facility] [place]. [id number] CBC W/AUTO DIFF WITH [id number] 03:05:42* Test Item Value Reference Range Interpretation Comme nts WBC (test code = 1001) 12.2 K/UL 3.5-11.0 H RBC (test code = 1002) 4.62 M/UL 3.80-5.40 HEMOGLOBIN (test code = 1003) 13.6 G/DL 11.5-15.5 HEMATOCRIT (test code = 1004) 40.3 % 34.0-45.0 MCV (test code = 1005) 87.2 fL 80.0-99.0 MCH (test code = 1006) 29.4 PG 25.0-33.0 MCHC (test code = 1007) 33.7 G/DL 31.0-36.0 RDW (test code = 1038) 13.2 % 11.5-15.0 NEUTROPHILS (test code = 1008) 59.0 % LYMPHOCYTES (test code = 1010) 27.7 % MONOCYTES (test code = 1011) 9.5 % EOSINOPHILS (test code = 1012) 3.2 % BASOPHILS (test code = 1013) 0.4 % IMMATURE GRANULOCYTES (test code = 1036) 0.2 % NUCLEATED RBCS (test code = 1065) 0.0 /100 WBC'S See_Comment [Automated messa ge] The system which generated this result transmitted reference range: 0.0. The reference range was not used to interpret this result as normal/abnormal. PLATELET COUNT (test code = 1015) 312 K/UL 130-400 ABSOLUTE NEUTROPHILS (test code = 1066) 7.15 K/UL 1.50-7.50 ABSOLUTE LYMPHOCYTES (test code = 1067) 3.37 K/UL 1.00-4.00 ABSOLUTE MONOCYTES (test code = 1068) 1.16 K/UL 0.20-1.00 H ABSOLUTE EOSINOPHILS (test code = 1040) 0.39 K/UL 0.00-0.50 ABSOLUTE BASOPHILS (test code = 1069) 0.05 K/UL 0.00-0.20 ABS IMMATURE GRANULOCYTES (test code = 1020) 0.03 K/UL 0.00-0.10 ABS NUCLEATED RBCS (test code = 15215) 0.00 K/UL 0.00-0.11 VITAMIN D, 25 [id number] 10:49:50* Test Item Value Reference Range Interpretation Comme nts VITAMIN D, 25 [place] (test code = 4958) 29 NG/ML SEE BELOW L EFFECTIVE 12/2022, PLEASE NOTE NEW METHODOLOGY IS ELECTROCHEMILUMINESCENCE BINDING ASSAY. NOTE: 25-HYDROXYVITAMIN D ASSAY INCLUDES 25-HYDROXYVITAMIN D2 AND D3. INTERPRETIVE RANGES PEDIATRIC (<17 YEARS) . . . . . . . . . . . NG/ML 20-100ADULT: INSUFFICIENT . . . . . . . . . . . . . . NG/ML <20 SUBOPTIMAL . . . . . . . . . . . . . . . NG/ML 20-29 OPTIMAL . . . . . . . . . . . . . . . . . NG/ML 30-100 [facility] has important pathology staff changes effective 06/26/2022. New pathology staff will provide uninterrupted, excellent patient care and clinical consultation. See URL: [email or web address] UNLESS OTHERWISE INDICATED, ALL TESTING PERFORMED AT [facility] [address] [place] [address] TRANSPLANT SURGEON: OSORIO REED M.D. CLIA NUMBER [id number] [facility] [place]. [id number] COMPREHENSIVE METABOLIC [id number] 08:15:05* Test Item Value Reference Range Interpretation Comme nts GLUCOSE (test code = 2217) 94 MG/DL 70-99 BUN (test code = 2208) 7 MG/DL 6-20 CREATININE (test code = 2214) 0.79 MG/DL 0.60-1.30 eGFR (2020 CKD-EPI) (test code = 99355) 102 ML/MIN/1.73 >60 CALC BUN/CREAT (test code = 2235) 9 RATIO 6-28 SODIUM (test code = 2231) 139 MEQ/L 133-146 POTASSIUM (test code = 2228) 4.6 MEQ/L 3.5-5.4 CHLORIDE (test code = 2215) 105 MEQ/L 95-107 CARBON DIOXIDE (test code = 2206) 21 MEQ/L 19-31 CALCIUM (test code = 2209) 10.0 MG/DL 8.5-10.5 PROTEIN, TOTAL (test code = 2229) 7.7 G/DL 6.1-8.3 ALBUMIN (test code = 2201) 4.2 G/DL 3.5-5.2 CALC GLOBULIN (test code = 2240) 3.5 G/DL 1.9-3.7 CALC A/G RATIO (test code = 2234) 1.2 RATIO 1.0-2.6 BILIRUBIN, TOTAL (test code = 2207) 0.2 MG/DL See_Comment [Automated me ssage] The system which generated this result transmitted reference range: <=1.2. The reference range was not used to interpret this result as normal/abnormal. ALKALINE PHOSPHATASE (test code = 2204) 127 U/L 40-114 H AST (test code = 2218) 27 U/L 9-40 ALT (test code = 2219) 35 U/L 5-40 VITAMIN [id number] 15:58:37* Test Item Value Reference Range Interpretation Comme [facility] VITAMIN B-6 (test code = 4956) 22 nmol/L 20-125 This test was de veloped and its performance characteristicsdetermined by [facility] ([facility]). It has not beencleared or approved by the U.S. Food and Drug Administration (FDA).The FDA has determined that such clearance or approval is notnecessary. This test is used for clinical purposes and should not beregarded as investigational or for research. [facility] is qualified toperform high complexity testing under the Clinical LaboratoryImprovement Amendments (CLIA). TESTING PERFORMED AT [facility] [address] [place] [address], [address], [address] [address] CLIA NO: [id number] VITAMIN D, 25 [id number] 04:11:51* Test Item Value Reference Range Interpretation Comme [facility] VITAMIN D, 25 OH (test code = 4958) 17 NG/ML SEE BELOW L EFFECTIVE 12/2022, PLEASE NOTE NEW METHODOLOGY IS ELECTROCHEMILUMINESCENCE BINDING ASSAY. NOTE: 25-HYDROXYVITAMIN D ASSAY INCLUDES 25-HYDROXYVITAMIN D2 AND D3. INTERPRETIVE RANGES PEDIATRIC (<17 YEARS) . . . . . . . . . . . NG/ML 20-100ADULT: INSUFFICIENT . . . . . . . . . . . . . . NG/ML <20 SUBOPTIMAL . . . . . . . . . . . . . . . NG/ML 20-29 OPTIMAL . . . . . . . . . . . . . . . . . NG/ML 30-100 VITAMIN [id number] 04:11:30* Test Item Value Reference Range Interpretation Comme nts VITAMIN B-12 (test code = 2840) 560 PG/ML 200-950 CBC W/AUTO DIFF WITH [id number] 03:46:52* Test Item Value Reference Range Interpretation Comme nts WBC (test code = 1001) 10.4 K/UL 3.5-11.0 RBC (test code = 1002) 4.77 M/UL 3.80-5.40 HEMOGLOBIN (test code = 1003) 13.7 G/DL 11.5-15.5 HEMATOCRIT (test code = 1004) 41.3 % 34.0-45.0 MCV (test code = 1005) 86.6 fL 80.0-99.0 MCH (test code = 1006) 28.7 PG 25.0-33.0 MCHC (test code = 1007) 33.2 G/DL 31.0-36.0 RDW (test code = 1038) 12.9 % 11.5-15.0 NEUTROPHILS (test code = 1008) 54.1 % LYMPHOCYTES (test code = 1010) 26.1 % MONOCYTES (test code = 1011) 11.2 % EOSINOPHILS (test code = 1012) 7.6 % BASOPHILS (test code = 1013) 0.7 % IMMATURE GRANULOCYTES (test code = 1036) 0.3 % NUCLEATED RBCS (test code = 1065) 0.0 /100 WBC'S See_Comment [Automated BAASBOXa ge] The system which generated this result transmitted reference range: 0.0. The reference range was not used to interpret this result as normal/abnormal. PLATELET COUNT (test code = 1015) 282 K/UL 130-400 ABSOLUTE NEUTROPHILS (test code = 1066) 5.61 K/UL 1.50-7.50 ABSOLUTE LYMPHOCYTES (test code = 1067) 2.70 K/UL 1.00-4.00 ABSOLUTE MONOCYTES (test code = 1068) 1.16 K/UL 0.20-1.00 H ABSOLUTE EOSINOPHILS (test code = 1040) 0.79 K/UL 0.00-0.50 H ABSOLUTE BASOPHILS (test code = 1069) 0.07 K/UL 0.00-0.20 ABS IMMATURE GRANULOCYTES (test code = 1020) 0.03 K/UL 0.00-0.10 ABS NUCLEATED RBCS (test code = 69010) 0.00 K/UL 0.00-0.11 PROTHROMBIN TIME (PT)2022-05-28 03:46:07* Test Item Value Reference Range Interpretation Comme nts PROTHROMBIN TIME (PT) (test code = 1402) 13.8 SECONDS 12.5-14.7 INR (test code = 17166) 1.0 SEE BELOW CURRENT RECOMMENDATIONS ARE FOR AN INR OF 2.0-3.0 FOR ALL PATIENTS ON VITAMIN K ANTAGONISTS, EXCEPT THOSE WITH PROSTHETIC HEART VALVES, FOR WHOM INR OF 2.5-3.5 IS RECOMMENDED. [facility] has important pathology staff changes effective 06/26/2022. New pathology staff will provide uninterrupted, excellent patient care and clinical consultation. See URL: [email or web address]. UNLESS OTHERWISE INDICATED, ALL TESTING PERFORMED AT [facility] [address] [place] [address] CLIA: [id number], CAP: [id number] COMPREHENSIVE METABOLIC [id number] 03:37:03* Test Item Value Reference Range Interpretation Comme nts GLUCOSE (test code = 2217) 97 MG/DL 70-99 BUN (test code = 2208) 7 MG/DL 6-20 CREATININE (test code = 2214) 0.79 MG/DL 0.60-1.30 eGFR (2020 CKD-EPI) (test code = 50368) 102 ML/MIN/1.73 >60 CALC BUN/CREAT (test code = 2235) 9 RATIO 6-28 SODIUM (test code = 2231) 138 MEQ/L 133-146 POTASSIUM (test code = 2228) 4.6 MEQ/L 3.5-5.4 CHLORIDE (test code = 2215) 102 MEQ/L 95-107 CARBON DIOXIDE (test code = 2206) 25 MEQ/L 19-31 CALCIUM (test code = 2209) 10.2 MG/DL 8.5-10.5 PROTEIN, TOTAL (test code = 2229) 8.0 G/DL 6.1-8.3 ALBUMIN (test code = 2201) 4.5 G/DL 3.5-5.2 CALC GLOBULIN (test code = 2240) 3.5 G/DL 1.9-3.7 CALC A/G RATIO (test code = 2234) 1.3 RATIO 1.0-2.6 BILIRUBIN, TOTAL (test code = 2207) 0.4 MG/DL See_Comment [Automated me ssage] The system which generated this result transmitted reference range: <=1.2. The reference range was not used to interpret this result as normal/abnormal. ALKALINE PHOSPHATASE (test code = 2204) 190 U/L 40-114 H AST (test code = 2218) 73 U/L 9-40 H ALT (test code = 2219) 100 U/L 5-40 H POCT URINALYSIS W/O SPECIFIC [id number] 20:00:00* Test Item Value Reference Range Interpretation Comme nts POCT PH U (test code = 3254) 6 mg/dl 5-8 POCT U LEUK EST (test code = 3263) neg Negative - Negative POCT U NIT (test code = 3262) neg Negative - Negati ve POCT U PROT (test code = 3259) neg Negative - Negat edward POCT U GLU (test code = 3256) neg Negative - Negati ve POCT U KETONE (test code = 3258) neg Negative - Neg ative POCT U BLD (test code = 3257) neg Negative - Negati ve [facility] URINALYSIS W/O SPECIFIC [id number] 20:00:00* Test Item Value Reference Range Interpretation Comme nts POCT PH U (test code = 3254) 6 mg/dl 5-8 POCT U LEUK EST (test code = 3263) neg Negative - Negative POCT U NIT (test code = 3262) neg Negative - Negati ve POCT U PROT (test code = 3259) neg Negative - Negat edward POCT U GLU (test code = 3256) neg Negative - Negati ve POCT U KETONE (test code = 3258) neg Negative - Neg ative POCT U BLD (test code = 3257) neg Negative - Negati ve [facility]
--- NOTE | 2024-04-04 22:27 | EDPHYS ---
Physician Documentation [facility] Name: Margaret Lucero Age: 33 yrs Sex: Female : 1990 Arrival Date: 04/04/2024 Time: 21:44 Bed DX4 Private MD: ED Physician Kp Harrell HPI: 04/04 22:29 This 33 yrs old Female presents to ER via Unassigned with complaints of Ear Pain. ec2 22:29 Patient arrives today for evaluation of right ear pain. Complaint of right ear pain ec2 started tonight. Reports no fevers or chills, no nausea or vomiting. States that she regularly cleans her ears with ear smart energy specialist. No medication allergies.. 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 - Infectious Disease History:: Denies. - Social history:: Smoking status: Patient denies any tobacco usage or history of. Patient uses street drugs, marijuana. ROS: 22:29 Constitutional: as per hpi ec2 Exam: 22:29 Constitutional: GEN: NAD Head: atraumatic Eyes: EOMI Ears: External ears are normal. ec2 Right ear with otitis externa and media. CV: regular rate LUNGS: no respiratory distress ABD: non-distended SKIN: no evidence of rashes MSK: no evidence of trauma Vital Signs: 22:18 BP 136 / 82; Pulse 83; Resp 15; Temp 98.6; Pulse Ox 100% ; Weight 115.67 kg; Height 5 vc1 ft. 4 in. ; Pain 9/10; 22:18 Body Mass Index 43.77 (115.67 kg, 162.56 cm) vc1 22:18 Pain Scale: Adult vc1 MDM: 22:26 Medical Screening Exam initiated ec2 22:29 Data reviewed: vital signs, nurses notes. ED course: Arrives today for ear pain. ec2 Examination shows otitis media and externa, will start the patient on topical and oral antibiotics. Patient discharged home. Considered other processes such as mastoiditis, as well as systemic processes. Administered Medications: 23:12 Drug: Ketorolac IM 30 mg IM once Route: IM; Site: right deltoid; vc1 23:48 Follow up: Response: Medication administered at discharge. vc1 23:13 Drug: Amoxicillin-Clavulanate PO 875 mg PO once Route: PO; vc1 23:48 Follow up: Response: Medication administered at discharge. vc1 Disposition Summary: 04/04/24 22:27 Discharge Ordered Notes: Location: Home ec2 Condition: Stable ec2 Diagnosis - Acute serous otitis media, right ear ec2 - Other otitis externa, right ear ec2 Followup: ec2 - With: Private Physician - When: - Reason: Re-evaluation by your physician Discharge Instructions: - Discharge Summary Sheet ec2 - Otitis Media, Adult ec2 - Otitis Externa, [id number] ec2 Forms: - Medication Reconciliation Form ec2 - Antibiotic Education ec2 - Prescription Opioid Use ec2 - Patient Portal Instructions ec2 - Leadership Thank You Letter ec2 Prescriptions: - ofloxacin 0.3 % Otic drops - instill 10 drop OTIC route every 24 hours; 5 milliliter; Refills: 0, Product ec2 Selection Permitted - Augmentin 875-125 mg Oral Tablet - take 1 tablet ORAL route every 12 hours for 10 days; 20 tablet; Refills: 0, ec2 Product Selection Permitted Signatures: Shannan Hahn RN RN vc1 Kp Harrell MD MD ec2
[2024-04-04] MEDS ORDERED: KETOROLAC 30 MG/ML INJ ONE (23:03)
[2024-04-04] MEDS ORDERED: AMOX/K CLAV 875 MG TAB ONE (23:03)
--- NOTE | 2024-04-04 23:49 | ER ---
Nurse's Notes [facility] Name: Margaret Lucero Age: 33 yrs Sex: Female : 1990 Arrival Date: 04/04/2024 Time: 21:44 Bed DX4 Private MD: Diagnosis: Acute serous otitis media, right ear;Other otitis externa, right ear Presentation: 04/04 22:18 Chief complaint: Patient states: right ear pain and pressure. vc1 22:18 Coronavirus screen: Client denies travel out of the [place] in the last 14 days. At this vc1 time, the client does not indicate any symptoms associated with coronavirus-19. Ebola Screen: Patient negative for fever greater than or equal to 101.5 degrees Fahrenheit, and additional compatible Ebola Virus Disease symptoms Patient denies exposure to infectious person. Patient denies travel to an Ebola-affected area in the 21 days before illness onset. No symptoms or risks identified at this time. Initial Sepsis Screen: Does the patient meet any 2 criteria? No. Patient's initial sepsis screen is negative. Does the patient have a suspected source of infection? No. Patient's initial sepsis screen is negative. Risk Assessment: Do you want to hurt yourself or someone else? Patient reports no desire to harm self or others. Onset of symptoms was April 04, 2024 at 20:30. Care prior to arrival: None. Activity prior to arrival: None. 22:18 Method Of Arrival: Ambulatory vc1 22:18 Acuity: EMILY 4 vc1 Triage Assessment: 22:18 General: Appears in no apparent distress. uncomfortable, Behavior is calm, cooperative, vc1 agitated. Pain: Complains of pain in right ear Pain does not radiate. Pain currently is 9 out of 10 on a pain scale. EENT: Reports pain in right ear. Neuro: Level of Consciousness is awake, alert, obeys commands, Oriented to person, place, time, situation, Appropriate for age. Cardiovascular: Heart tones S1 S2 present Capillary refill < 3 seconds Patient's skin is warm and dry. Respiratory: Airway is patent Respiratory effort is even, unlabored, Respiratory pattern is regular, symmetrical, Breath sounds are clear bilaterally. GI: No deficits noted. No signs and/or symptoms were reported involving the gastrointestinal system. : No deficits noted. No signs and/or symptoms were reported regarding the genitourinary system. Derm: Skin is intact, is healthy with good turgor, Skin is dry, Skin is normal. Musculoskeletal: Circulation, motion, and sensation intact. Range of motion: intact in all extremities. 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 - Infectious Disease History:: Denies. - Social history:: Smoking status: Patient denies any tobacco usage or history of. Patient uses street drugs, marijuana. Screenin:[address] [facility] ED Fall Risk Assessment (Adult) History of falling in the last 3 months, vc1 including since admission No falls in past 3 months (0 pts) Confusion or Disorientation No (0 pts) Intoxicated or Sedated No (0 pts) Impaired Gait No (0 pts) Mobility Assist Device Used No (0 pt) Altered Elimination No (0 pt) Score/Fall Risk Level 0 - 2 = Low Risk Oriented to surroundings, Maintained a safe environment, Educated pt \T\ family on fall prevention, incl call for assistance when getting out of bed. Abuse screen: Denies threats or abuse. Nutritional screening: No deficits noted. Tuberculosis screening: No symptoms or risk factors identified. Vital Signs: 22:18 BP 136 / 82; Pulse 83; Resp 15; Temp 98.6; Pulse Ox 100% ; Weight 115.67 kg; Height 5 vc1 ft. 4 in. ; Pain 9/10; 22:18 Body Mass Index 43.77 (115.67 kg, 162.56 cm) vc1 22:18 Pain Scale: Adult vc1 ED Course: 22:01 Patient arrived in ED. gm2 22:18 Arm band placed on right wrist. vc1 22:18 Patient has correct armband on for positive identification. vc1 22:18 Provided Education on: ear pain\E\. vc1 22:21 Kp Harrell MD is Attending Physician. ec2 23:40 Triage completed. vc1 23:45 No provider procedures requiring assistance completed. Patient did not have IV access vc1 during this emergency room visit. Administered Medications: 23:12 Drug: Ketorolac IM 30 mg IM once Route: IM; Site: right deltoid; vc1 23:48 Follow up: Response: Medication administered at discharge. vc1 23:13 Drug: Amoxicillin-Clavulanate PO 875 mg PO once Route: PO; vc1 23:48 Follow up: Response: Medication administered at discharge. vc1 Medication: 23:43 VIS not applicable for this client. vc1 Outcome: 22:27 Discharge ordered by . ec2 23:47 Discharged to home ambulatory, vc1 23:47 Condition: good 23:47 Discharge instructions given to patient, Instructed on discharge instructions, follow up and referral plans. medication usage, Demonstrated understanding of instructions, follow-up care, medications, Prescriptions given X 2, 23:49 Patient left the ED. vc1 Signatures: Shannan Hahn RN RN vc1 Kp Harrell MD MD ec2 Kaitlin Boyce gm2
[2024-04-05 05:01] VITALS: BP 136/82; TEMP 98.6; O2SAT 100
== END 2024-04-04 23:49 | disposition home or self-care (01) ==
LOC: ER 21:44
DX: H65.01 Acute serous otitis media, right ear (principal); H60.8X1 Other otitis externa, right ear
CPT/HCPCS: 96372; 99284